=== PATIENT | male | born 1940 | race Caucasian/White ===

== ENCOUNTER 2018-06-24 18:54 | Emergency (ER) | payer MEDICARE, OTHER ==
[2018-06-24] MEDS ORDERED: PROVENTIL 2.5 MG/3 ML NEB IH ONE ×2 (19:27→19:28)
--- NOTE | 2018-06-24 19:29 | ERPHSYRPT ---
- History of Present Illness Time Seen by Provider: 06/24/18 19:15 Source: patient, family Patient Subjective Stated Complaint: pt states he has been coughing for last feew days and has not been able to get over bronchitis Triage Nursing Assessment: pt alert and oriented, asnwers qeustions approp. pt ambulatory with steady gait noted. skin warm and dry. respirations nonlabored with lung sounds dimisnished. exp wheezes noted bilat. occasional cough noted. Physician History: 78 y/o white male with copd and recurrent pneumonias presents with coughing for 2 days. pt states he has tessalon perles but does not use them because they make him feel odd. he has been on 3 rounds of z pack and steroids since april. pt has h/o asbestos exposure in the past but no dx of mesothelioma. pt denies cp and denies soa. pt speaks multiple full sentences without any distress Timing/Duration: day(s) (2) Cough Quality/Degree: mild, dry cough Possible Cause: occasional episodes Associated Symptoms: cough, wheezing, No fever, No chest pain/soreness, No shortness of breath, No sore throat International travel in last 2 weeks: No Allergies/Adverse Reactions: No Known Drug Allergies Allergy (Verified 06/24/18 19:17) Home Medications: Benzonatate [Tessalon Perle] 100 mg PO TIDPRN 06/24/18 [History] Bisoprolol/Hydrochlorothiazide [Bisoprolol-Hctz 5-6.25 mg Tab] 1 each PO DAILY 06/24/18 [History] Tiotropium [place] [Spiriva] 18 mcg IH DAILY 06/24/18 [History] Hx Tetanus, Diphtheria Vaccination/Date Given: Yes Hx Influenza Vaccination/Date Given: Yes Hx Pneumococcal Vaccination/Date Given: Yes Immunizations Up to Date: Yes - Review of Systems Constitutional: No Symptoms, No Fever Eyes: No Symptoms Ears, Nose, & Throat: No Symptoms Respiratory: Cough, Wheezing, No Dyspnea, No Stridor Cardiac: No Symptoms, No Chest Pain, No Palpitations, No Syncope Abdominal/Gastrointestinal: No Symptoms, No Abdominal Pain, No Nausea, No Vomiting, No Diarrhea Genitourinary Symptoms: No Symptoms, No Dysuria, No Frequency, No Hematuria Musculoskeletal: No Symptoms, No Back Pain, No Neck Pain Skin: No Symptoms Neurological: No Symptoms Psychological: No Symptoms Endocrine: No Symptoms Hematologic/Lymphatic: No Symptoms Immunological/Allergic: No Symptoms All Other Systems: Reviewed and Negative - Past Medical History Pertinent Past Medical History: Yes Neurological History: No Pertinent History ENT History: No Pertinent History Cardiac History: Hypertension Respiratory History: COPD Endocrine Medical History: No Pertinent History Musculoskeletal History: No Pertinent History GI Medical History: No Pertinent History History: No Pertinent History Psycho-Social History: No Pertinent History Male Reproductive Disorders: No Pertinent History - Past Surgical History Past Surgical History: Yes Neuro Surgical History: No Pertinent History Cardiac: No Pertinent History Respiratory: No Pertinent History Gastrointestinal: No Pertinent History Genitourinary: No Pertinent History Musculoskeletal: No Pertinent History Male Surgical History: No Pertinent History 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" - Social History Smoking Status: Former smoker Exposure to second hand smoke: No Drug Use: none Patient Lives Alone: No - Nursing Vital Signs Nursing Vital Signs: Initial Vital Signs Temperature 97.5 F 06/24/18 19:04 Pulse Rate 68 06/24/18 19:04 Respiratory Rate 18 06/24/18 19:04 Blood Pressure 214/85 06/24/18 19:04 O2 Sat by Pulse Oximetry 96 06/24/18 19:04 Pain Scale Pain Intensity 0 - Physical Exam General Appearance: no apparent distress, alert, anxiety Eye Exam: PERRL/EOMI, eyes nml inspection Ears, Nose, Throat Exam: normal ENT inspection, moist mucous membranes Neck Exam: normal inspection, non-tender, supple, full range of motion Respiratory Exam: airway intact, diminished breath sounds, wheezing, No chest tenderness, No respiratory distress, No accessory muscle use Cardiovascular Exam: regular rate/rhythm, normal heart sounds, normal peripheral pulses Gastrointestinal/Abdomen Exam: soft, normal bowel sounds, No tenderness, No guarding, No rebound Back Exam: normal inspection, normal range of motion, No CVA tenderness, No vertebral tenderness Extremity Exam: normal inspection, normal range of motion, pelvis stable Neurologic Exam: alert, oriented x 3, cooperative, glove turner and former II-XII nml as tested Skin Exam: normal color, warm, dry Lymphatic Exam: No adenopathy SpO2 Interpretation: normal SpO2: 96 Oxygen Delivery: Room Air - Course Nursing assessment & vital signs reviewed: Yes EKG Interpreted by Me: RATE (65), Sinus Rhythm, Left Cherry Log Deviation, Left Bundle Branch Block, Right Bundle Branch Block, Other (no comparison ekg) Ordered Tests: Active Orders 24 hr Category Date Time Status Exerciser STAT Care 06/24/18 19:33 Active EKG-ER Only STAT Care 06/24/18 19:32 Active IV Insertion STAT Care 06/24/18 19:32 Active Pulse Oximetry (ED) STAT Care 06/24/18 19:32 Active CHEST 1 VIEW (PORTABLE) Stat Exams 06/24/18 19:33 Taken CBC W DIFF Stat Lab 06/24/18 19:15 Completed CMP Stat Lab 06/24/18 19:15 Completed NT PRO BNP Stat Lab 06/24/18 19:15 Completed TROPONIN Q3H Lab 06/24/18 19:15 Completed TROPONIN Q3H Lab 06/24/18 22:45 Ordered TROPONIN Q3H Lab 06/25/18 01:45 Ordered TROPONIN Q3H Lab 06/25/18 04:45 Ordered TROPONIN Q3H Lab 06/25/18 07:45 Ordered Respiratory Therapy Assessment DAILY RT 06/24/18 19:32 Completed Medication Summary Discontinued Medications Generic Name Dose Route Start Last Admin Trade Name Freq PRN Reason Stop Dose Admin Hydrocodone Bitart/Acetaminophen 10 ml 06/24/18 21:08 06/24/18 21:11 Hydrocodone-Acetamin 2.5-108/5 Ml Solution PO 06/24/18 21:09 10 ml STAT STA Administration Hydrocodone Bitart/Acetaminophen Confirm 06/24/18 21:10 Hydrocodone-Acetamin 2.5-108/5 Ml Solution Administered 06/24/18 21:11 Dose 10 ml .ROUTE .STK-MED ONE Albuterol Sulfate 2.5 mg 06/24/18 19:27 06/24/18 19:29 Proventil 2.5 Mg/3 Ml Neb IH 06/24/18 19:28 2.5 mg STAT ONE Administration Albuterol Sulfate Confirm 06/24/18 19:28 Proventil 2.5 Mg/3 Ml Neb Administered 06/24/18 19:29 Dose 2.5 mg IH .STK-MED ONE Methylprednisolone Sodium Succinate 125 mg 06/24/18 19:32 06/24/18 19:53 Solu-Medrol 125 Mg IV 06/24/18 19:33 125 mg STAT ONE Administration Methylprednisolone Sodium Succinate Confirm 06/24/18 19:52 Solu-Medrol 125 Mg Administered 06/24/18 19:53 Dose 125 mg .ROUTE .STK-MED ONE Lab/Rad Data: Laboratory Result Diagrams 06/24/18 19:15 06/24/18 19:15 Laboratory Results 06/24/18 06/24/18 06/24/18 Range/Units 19:15 19:15 19:15 WBC 6.6 (4.0-10.5) K/mm3 RBC 4.54 (4.1-5.6) M/mm3 Hgb 12.7 (12.5-18.0) gm/dl Hct 39.3 L (42-50) % MCV 86.6 (78-100) fl MCH 28.0 (26-32) pg MCHC 32.3 (32-36) g/dl RDW 14.5 H (11.5-14.0) % Plt Count 205 (150-450) K/mm3 MPV 9.0 (6-9.5) fl Gran % 48.5 (36.0-66.0) % Eos # (Auto) 0.38 (0-0.5) Absolute Lymphs (auto) 2.20 (1.0-4.6) Absolute Monos (auto) 0.76 (0.0-1.3) Lymphocytes % 33.5 (24.0-44.0) % Monocytes % 11.6 (0.0-12.0) % Eosinophils % 5.8 H (0.00-5.0) % Basophils % 0.6 (0.0-0.4) % Absolute Granulocytes 3.18 (1.4-6.9) Basophils # 0.04 (0-0.4) Sodium 133 L (137-145) mmol/L Potassium 5.1 (3.5-5.1) mmol/L Chloride 101 (98-107) mmol/L Carbon Dioxide 24 (22-30) mmol/L Anion Gap 13.8 (5-15) MEQ/L BUN 11 (9-20) mg/dL Creatinine 0.80 (0.66-1.25) mg/dL Estimated GFR > 60.0 ML/MIN Glucose 85 (74-106) mg/dL Calcium 9.1 (8.4-10.2) mg/dL Total Bilirubin 1.30 (0.2-1.3) mg/dL AST 44 (17-59) U/L ALT 27 (0-50) U/L Alkaline Phosphatase 57 (38-126) U/L Troponin I < 0.012 (0.000-0.034) ng/mL NT-Pro-B Natriuret Pep 102 (0-1800) pg/mL Serum Total Protein 7.0 (6.3-8.2) g/dL Albumin 4.0 (3.5-5.0) g/dL - Progress Progress: improved, re-examined Air Movement: good Progress Note: 06/24/18 20:47 cxr-bilat calcified pleural plaques. c/w asbestos exposure. no infiltrate 06/24/18 21:08 pt feeling better than when he came into ED Blood Culture(s) Obtained: No Antibiotics given: No Counseled pt/family regarding: lab results, diagnosis, need for follow-up - Departure Time of Disposition: 21:15 Departure Disposition: Home Clinical Impression: COPD exacerbation Condition: Stable Critical Care Time: No Referrals: PRIYA JEONG [Primary Care Provider] - Instructions: Chronic Obstructive Pulmonary Disease Additional Instructions: drink plenty of fluids. follow up with agile project manager for further management Prescriptions: Hydrocodone Bit/Acetaminophen [Hydrocodone-Acetaminophen Soln] 10 ml PO Q6H # 120 ml Prednisone 10 mg [Deltasone 10 mg] 10 mg PO TID #12 tablet
[2018-06-24] MEDS ORDERED: solu-MEDROL 125 MG IV ONE (19:32)
[2018-06-24] MEDS ORDERED: solu-MEDROL 125 MG ONE (19:52)
[2018-06-24 20:36] LABS: BASOPHIL % 0.6 % (0.0-0.4); Basophil (Absolute #) 0.04 (0-0.4); Eosinophil % 5.8 % (0.00-5.0); Eosinophil (Absolute #) 0.38 (0-0.5); Granulocyte Absolute (ANC) 3.18 (1.4-6.9); Granulocytes % 48.5 % (36.0-66.0); Hematocrit 39.3 % (42-50); Hemoglobin 12.7 gm/dl (12.5-18.0); Lymphocytes % 33.5 % (24.0-44.0); Mean Cell Volume 86.6 fl (78-100); Mean Corpuscular Hgb Concent. 32.3 g/dl (32-36); Monocyte (Absolute #) 0.76 (0.0-1.3); Monocytes % 11.6 % (0.0-12.0); Platelet Count 205 K/mm3 (150-450); Red Blood Count 4.54 M/mm3 (4.1-5.6); Red Cell Distribution Width 14.5 % (11.5-14.0); White Blood Count 6.6 K/mm3 (4.0-10.5)
[2018-06-24 20:49] VITALS: O2SAT 96
[2018-06-24 20:58] VITALS: BP 182/80; PULSE 63
[2018-06-24 21:04] LABS: ALKALINE PHOSPHATASE 57 U/L (38-126); ANION GAP 13.8 MEQ/L (5-15); BLOOD UREA NITROGEN 11 mg/dL (9-20); CHLORIDE 101 mmol/L (98-107); Calcium 9.1 mg/dL (8.4-10.2); Carbon Dioxide 24 mmol/L (22-30); Glucose 85 mg/dL (74-106); NT PRO BNP 102 pg/mL (0-1800); Potassium 5.1 mmol/L (3.5-5.1); SGOT/AST 44 U/L (17-59); SGPT/ALT 27 U/L (0-50); SODIUM 133 mmol/L (137-145)
[2018-06-24] MEDS ORDERED: HYDROCODONE-ACETAMIN 2.5-108/5 ML SOLUTION PO STA (21:08)
[2018-06-24] MEDS ORDERED: HYDROCODONE-ACETAMIN 2.5-108/5 ML SOLUTION ONE (21:10)
--- NOTE | 2018-06-25 11:24 | XRAY ---
Indication: Cough. Comparison: None Portable chest demonstrates scattered bilateral calcified pleural plaquing and right base discoid atelectasis/scarring. No focal infiltrate, consolidation, or large effusion. Heart is not enlarged. Descending aorta tortuous. Bony thorax intact with mild degenerative changes. Impression: Nonacute chest with chronic features. Comment: Preliminary interpretation was made by [facility]. No discrepancy.
== END 2018-06-24 21:31 | disposition home or self-care (01) ==
LOC: ED 18:54
DX: J44.1 Chronic obstructive pulmonary disease with (acute) exacerbation (principal); Z79.899 Other long term (current) drug therapy
CPT/HCPCS: 36000; 36415; 71045; 80053; 83880; 84484; 85025; 93005; 93041; 94640; 96374; 99284; J2930; J7609; A9270-GY

== ENCOUNTER 2018-10-11 09:11 | Inpatient (IN) | payer MEDICARE, OTHER ==
[2018-10-11] MEDS: DUONEB 0.5-3 MG/3 ml Neb IH SCH ×3 (12:00→20:12)
[2018-10-11] MEDS ORDERED: PROVENTIL 2.5 MG/3 ML NEB IH ONE (12:04)
[2018-10-11] MEDS ORDERED: TYLENOL 325 MG PO PRN (12:55)
[2018-10-11 13:05] LABS: BASOPHIL % 0.2 % (0.0-0.4); Basophil (Absolute #) 0.02 (0-0.4); Granulocyte Absolute (ANC) 7.44 (1.4-6.9); Granulocytes % 75.8 % (36.0-66.0); Hematocrit 39.1 % (42-50); Hemoglobin 12.9 gm/dl (12.5-18.0); Lymphocyte (Absolute #) 1.01 (1.0-4.6); Lymphocytes % 10.3 % (24.0-44.0); Mean Cell Volume 84.6 fl (78-100); Mean Corpuscular Hemoglobin 27.9 pg (26-32); Mean Platelet Volume 9.1 fl (6-9.5); Monocyte (Absolute #) 1.15 (0.0-1.3); Monocytes % 11.7 % (0.0-12.0); Platelet Count 123 K/mm3 (150-450); Red Blood Count 4.62 M/mm3 (4.1-5.6); Red Cell Distribution Width 15.7 % (11.5-14.0); White Blood Count 9.8 K/mm3 (4.0-10.5)
[2018-10-11 13:19] LABS: ALBUMIN 3.7 g/dL (3.5-5.0); ALKALINE PHOSPHATASE 58 U/L (38-126); ANION GAP 15.5 MEQ/L (5-15); BLOOD UREA NITROGEN 14 mg/dL (9-20); CHLORIDE 93 mmol/L (98-107); Calcium 9.2 mg/dL (8.4-10.2); Carbon Dioxide 22 mmol/L (22-30); Glucose 103 mg/dL (74-106); NT PRO BNP 150 pg/mL (0-1800); Potassium 4.4 mmol/L (3.5-5.1); SGOT/AST 35 U/L (17-59); SGPT/ALT 38 U/L (0-50); SODIUM 126 mmol/L (137-145)
[2018-10-11] MEDS ORDERED: Zithromax 500 MG/ 250 ML NaCl Premix 500 MG/250 ML IVPB IV SCH (14:00)
--- NOTE | 2018-10-11 14:06 | XRAY ---
Indication: Short of breath. Comparison: June 24, 2018. PA/lateral chest remains hyperinflated again with bilateral scattered calcified pleural plaquing. No focal infiltrate, consolidation, or large effusion. Heart and mediastinal structures within normal limits again with tortuous descending aorta. Bony thorax intact again with mild degenerative changes. Impression: Stable nonacute hyperinflated chest with chronic features.
[2018-10-11] MEDS: Sodium Chloride 0.9% 1000 ML 1,000 ML IV SCH (14:11)
[2018-10-11] MEDS: ROCEPHIN 2 Gm-D5w 50ML BAG** 2 G/50 ML IVPB IV SCH (14:12)
[2018-10-11] MEDS ORDERED: Ventolin Hfa MDI IH PRN (14:58)
[2018-10-11] MEDS ORDERED: PROVENTIL 2.5 MG/3 ML NEB IH SCH (15:00)
[2018-10-11] MEDS ORDERED: PROVENTIL COMMON CANISTER IH PRN (15:01)
[2018-10-11] MEDS ORDERED: MEDICATION INTERVENTION PO SCH (15:15)
[2018-10-11] MEDS: Tessalon Perles 100 MG PO SCH ×2 (15:53→22:20)
[2018-10-11] MEDS ORDERED: Pepto-Bismol PO SCH (18:30)
[2018-10-11] MEDS ORDERED: Advair Hfa 115/21 Common canister IH SCH (19:00)
[2018-10-11] MEDS: Advair Hfa 230/21 Mcg COMMON CANISTER IH SCH (20:04)
[2018-10-12] MEDS: DUONEB 0.5-3 MG/3 ml Neb IH SCH ×4 (02:10→17:26)
[2018-10-12] MEDS: Advair Hfa 230/21 Mcg COMMON CANISTER IH SCH ×2 (06:42→17:26)
[2018-10-12] MEDS: Pepto-Bismol PO PRN ×3 (08:17→17:32)
--- NOTE | 2018-10-12 09:14 | PCM.NOTE ---
Date and Time: 10/12/18910 Subjective Assessment: still short of breath - Review of Systems Constitutional: No Fever, No Chills Eyes: No Symptoms Ears, Nose, & Throat: No Symptoms Respiratory: Cough, Orthopnea, Short Of Breath, Wheezing Cardiac: No Chest Pain, No Edema, No Syncope Abdominal/Gastrointestinal: No Abdominal Pain, No Nausea, No Vomiting, No Diarrhea Genitourinary Symptoms: No Dysuria Musculoskeletal: No Back Pain, No Neck Pain Skin: No Rash Neurological: No Dizziness, No Focal Weakness, No Sensory Changes Psychological: No Symptoms Endocrine: No Symptoms Hematologic/Lymphatic: No Symptoms Immunological/Allergic: No Symptoms Objective Exam General Appearance: no apparent distress, alert Neurologic Exam: alert, oriented x 3, cooperative, normal mood/affect, nml cerebellar function, sensation nml, No motor deficits Skin Exam: normal color, warm, dry Eye Exam: PERRL, EOMI, eyes nml inspection Ears, Nose, Throat Exam: normal ENT inspection, pharynx normal, moist mucous membranes Neck Exam: normal inspection, non-tender, supple, full range of motion Respiratory Exam: diminished breath sounds, prolonged expirations, crackles/ rales, rhonchi, wheezing, No respiratory distress Cardiovascular Exam: regular rate/rhythm, normal heart sounds Gastrointestinal/Abdomen Exam: soft, No tenderness, No mass Extremity Exam: normal inspection, normal range of motion Back Exam: normal inspection, normal range of motion, No CVA tenderness, No vertebral tenderness Male Genitalia Exam: deferred Rectal Exam: deferred OBJECTIVE DATA Vital Signs: Vital Signs - 24 hr Temp Pulse Resp BP Pulse Ox 10/12/18 07:18 98 F 80 20 178/76 94 L 10/12/18 06:45 84 22 93 L 10/12/18 04:00 18 10/12/18 03:48 97.9 F 90 18 127/59 93 L 10/12/18 03:28 79 18 89 L 10/12/18 00:00 20 10/11/18 23:58 98.9 F 76 19 141/65 96 10/11/18 20:00 97.7 F 74 18 158/69 94 L 10/11/18 19:59 68 22 94 L 10/11/18 16:00 97.8 F 65 20 153/67 94 L 10/11/18 14:38 94 L 10/11/18 12:27 64 22 92 L 10/11/18 12:05 97.7 F 66 20 160/75 93 L Oxygen-Last 24 hours O2 Percentage 2 Liters = 28% O2 Percentage 2 Liters = 28% O2 Percentage 2 Liters = 28% O2 Percentage 2 Liters = 28% Pain Assessment - Last Documented Pain Intensity 0 Pain Scale Used 0-10 Pain Scale Intake and Output: Intake & Output 10/09/18 10/10/18 10/11/18 10/12/18 11:59 11:59 11:59 11:59 Intake Total 1992 Balance 1992 Weight 102.2 kg Lab Results: Lab Results-Last 24 Hours 10/11/18 10/11/18 Range/Units 12:15 12:15 WBC 9.8 (4.0-10.5) K/mm3 RBC 4.62 (4.1-5.6) M/mm3 Hgb 12.9 (12.5-18.0) gm/dl Hct 39.1 L (42-50) % MCV 84.6 (78-100) fl MCH 27.9 (26-32) pg MCHC 33.0 (32-36) g/dl RDW 15.7 H (11.5-14.0) % Plt Count 123 L (150-450) K/mm3 MPV 9.1 (6-9.5) fl Gran % 75.8 H (36.0-66.0) % Eos # (Auto) 0.20 (0-0.5) Absolute Lymphs (auto) 1.01 (1.0-4.6) Absolute Monos (auto) 1.15 (0.0-1.3) Lymphocytes % 10.3 L (24.0-44.0) % Monocytes % 11.7 (0.0-12.0) % Eosinophils % 2.0 (0.00-5.0) % Basophils % 0.2 (0.0-0.4) % Absolute Granulocytes 7.44 H (1.4-6.9) Basophils # 0.02 (0-0.4) Sodium 126 L (137-145) mmol/L Potassium 4.4 (3.5-5.1) mmol/L Chloride 93 L (98-107) mmol/L Carbon Dioxide 22 (22-30) mmol/L Anion Gap 15.5 H (5-15) MEQ/L BUN 14 (9-20) mg/dL Creatinine 0.80 (0.66-1.25) mg/dL Estimated GFR > 60.0 ML/MIN Glucose 103 (74-106) mg/dL Calcium 9.2 (8.4-10.2) mg/dL Total Bilirubin 1.80 H (0.2-1.3) mg/dL AST 35 (17-59) U/L ALT 38 (0-50) U/L Alkaline Phosphatase 58 (38-126) U/L NT-Pro-B Natriuret Pep 150 (0-1800) pg/mL Serum Total Protein 7.0 (6.3-8.2) g/dL Albumin 3.7 (3.5-5.0) g/dL Radiology Exams: Radiology Procedures Category Date Time Status CHEST 2 VIEWS (PA AND LAT) Stat Exams 10/11/18 13:57 Completed Assessment/Plan (1) COPD exacerbation Current Visit: Yes Status: Acute Assessment & Plan: Last Vital Signs Temp 98 F 10/12/18 07:18 Pulse 80 10/12/18 07:18 Resp 20 10/12/18 07:18 BP 178/76 10/12/18 07:18 Pulse Ox 94 L 10/12/18 07:18 Allergies No Known Drug Allergies Allergy (Verified 06/24/18 19:17) Active Medications Acetaminophen (Tylenol 325 Mg) 325 mg PO Q4H PRN PRN PRN Reason: PAIN, FEVER, HEADACHE Stop: 11/10/18 12:54 Albuterol Sulfate (Proventil Common Canister) 2 puff IH QID PRN PRN PRN Reason: SHORTNESS OF BREATH/WHEEZING Stop: 11/10/18 15:00 Albuterol/Ipratropium (Duoneb 0.5-3 Mg/3 Ml Neb) 3 ml IH Q6HRT [facility] Stop: 11/10/18 12:59 Last Admin: 10/12/18 06:42 Dose: 3 ml Benzonatate (Tessalon Perles 100 Mg) 100 mg PO TID [facility] Stop: 11/10/18 14:59 Last Admin: 10/11/18 22:20 Dose: 100 mg Bismuth Subsalicylate (Pepto-Bismol) 524 mg PO Q1H PRN PRN Stop: 11/10/18 18:29 Last Admin: 10/12/18 08:17 Dose: 524 mg Ceftriaxone Sodium/Dextrose (Rocephin 2 Gm-D5w 50ml Bag) 2 g in 50 mls @ 100 mls/hr IV Q24H10 [facility] Stop: 11/10/18 13:14 Last Admin: 10/11/18 14:12 Dose: 100 mls/hr Sodium Chloride (Sodium Chloride 0.9% 1000 Ml) 1,000 mls @ 50 mls/hr IV .Q20H [facility] Stop: 11/10/18 12:59 Last Admin: 10/11/18 14:11 Dose: 50 mls/hr Azithromycin (Zithromax 500 Mg/ 250 Ml Nacl Premix) 500 mg in 250 mls @ 250 mls /hr IV Q24H10 [facility] Stop: 11/11/18 09:59 Miscellaneous Information (Medication Intervention) 1 each PO .RN TO CHECK ON [facility] Stop: 11/10/18 15:14 Multivitamins Therapeutic (Theragran Multivitamin) 1 tab PO DAILY [facility] Stop: 11/11/18 09:59 Fluticasone/Salmeterol (Advair Hfa 230/21 Mcg Common Canister*) 2 puff IH BIDRT [facility] Stop: 11/10/18 18:59 Last Admin: 10/12/18 06:42 Dose: 2 puff Intake & Output 10/11/18 10/12/18 11:59 11:59 Intake Total 1992 Balance 1992 Weight 102.2 kg Orders 10/11/18 12:27 Oxygen NASAL CANNULA 2 lpm Respiratory Therapy Assessment DAILY 10/11/18 12:28 Peak Expiratory Flow Rate ONCE Pulse Oximetry .spot check 10/11/18 12:55 Place in Observation ROUTINE Acetaminophen 325 mg [Tylenol 325 mg] 325 mg PO Q4H PRN PRN 10/11/18 12:57 Up Ad Amrita TOLERATED 10/11/18 13:00 Albuterol/Ipratropium 3ml Neb* [DUONEB 0.5-3 MG/3 ml Neb] 3 ml IH Q6HRT NaCl 0.9% 1000 ml [Sodium Chloride 0.9% 1000 ML] 1,000 ml IV 50 mls/hr 10/11/18 13:15 Ceftriaxone 2 GM/50 ML PREMIX* [ROCEPHIN 2 Gm-D5w 50ML BAG] 2 g in 50 ml IV Q24H10 10/11/18 15:00 Benzonatate 100 mg [Tessalon Perles 100 MG] 100 mg PO TID 10/11/18 15:01 Albuterol Common Canister [Proventil Common Canister] 2 puff IH QID PRN PRN 10/11/18 15:15 Medication Intervention 1 each PO .RN TO CHECK ON 10/11/18 19:00 Fluticasone/Salmeterol 230/21 [Advair Hfa 230/21 Mcg COMMON CANISTER*] 2 puff IH BIDRT 10/11/18 21:00 BiPap/CPAP ROUTINE 10/11/18 Lunch Regular Diet 10/12/18 06:45 Bismuth Subsalicylate [Pepto-Bismol] 524 mg PO Q1H PRN PRN 10/12/18 08:50 Ambulate Patient TID 10/12/18 09:30 Methylprednis Sod Succ 125 mg* [solu-MEDROL 125 MG] 60 mg IV Q12H 10/12/18 10:00 Azithromycin 500 mg/250 ml [Zithromax 500 MG/ 250 ML NaCl Premix] 500 mg in 250 ml IV Q24H10 Multivitamins,Therapeutic Tab* [Theragran Multivitamin] 1 tab PO DAILY Lab Tests 10/11/18 10/11/18 12:15 12:15 WBC 9.8 RBC 4.62 Hgb 12.9 Hct 39.1 L MCV 84.6 MCH 27.9 MCHC 33.0 RDW 15.7 H Plt Count 123 L MPV 9.1 Gran % 75.8 H Eos # (Auto) 0.20 Absolute Lymphs (auto) 1.01 Absolute Monos (auto) 1.15 Lymphocytes % 10.3 L Monocytes % 11.7 Eosinophils % 2.0 Basophils % 0.2 Absolute Granulocytes 7.44 H Basophils # 0.02 Sodium 126 L Potassium 4.4 Chloride 93 L Carbon Dioxide 22 Anion Gap 15.5 H BUN 14 Creatinine 0.80 Estimated GFR > 60.0 Glucose 103 Calcium 9.2 Total Bilirubin 1.80 H AST 35 ALT 38 Alkaline Phosphatase 58 NT-Pro-B Natriuret Pep 150 Serum Total Protein 7.0 Albumin 3.7 Code(s): J44.1 - CHRONIC OBSTRUCTIVE PULMONARY DISEASE W (ACUTE) EXACERBATION (2) HTN (hypertension) Current Visit: Yes Status: Acute Code(s): I10 - ESSENTIAL (PRIMARY) HYPERTENSION
[2018-10-12] MEDS: solu-MEDROL 125 MG IV SCH ×2 (09:51→22:29)
[2018-10-12] MEDS: ROCEPHIN 2 Gm-D5w 50ML BAG** 2 G/50 ML IVPB IV SCH (09:52)
[2018-10-12] MEDS: THERAGRAN MULTIVITAMIN PO SCH (09:53)
[2018-10-12] MEDS: Tessalon Perles 100 MG PO SCH ×3 (09:53→22:28)
[2018-10-12] MEDS: Zithromax 500 MG/ 250 ML NaCl Premix 500 MG/250 ML IVPB IV SCH (09:55)
[2018-10-12] MEDS ORDERED: HYDROCHLOROTHIAZIDE PO SCH (10:00)
[2018-10-12] MEDS ORDERED: [UNRECOGNIZED DRUG - OTHER] PO SCH (10:00)
[2018-10-12] MEDS ORDERED: [UNRECOGNIZED DRUG - OTHER] PO SCH (10:00)
[2018-10-12] MEDS ORDERED: LYCOPENE PO SCH (10:00)
[2018-10-12] MEDS ORDERED: BISOPROLOL PO SCH (10:00)
[2018-10-12] MEDS ORDERED: MULTIVIT MINERALS PO SCH (10:00)
[2018-10-12] MEDS: Sodium Chloride 0.9% 1000 ML 1,000 ML IV SCH (13:40)
[2018-10-13] MEDS: DUONEB 0.5-3 MG/3 ml Neb IH SCH ×4 (01:35→20:55)
[2018-10-13] MEDS: Advair Hfa 230/21 Mcg COMMON CANISTER IH SCH ×2 (08:48→20:56)
[2018-10-13] MEDS: Tessalon Perles 100 MG PO SCH ×3 (09:06→21:49)
[2018-10-13] MEDS: solu-MEDROL 125 MG IV SCH ×2 (09:06→21:50)
[2018-10-13] MEDS: THERAGRAN MULTIVITAMIN PO SCH (09:06)
[2018-10-13] MEDS: ROCEPHIN 2 Gm-D5w 50ML BAG** 2 G/50 ML IVPB IV SCH (09:07)
[2018-10-13] MEDS: Zithromax 500 MG/ 250 ML NaCl Premix 500 MG/250 ML IVPB IV SCH (10:23)
[2018-10-13] MEDS: PATIENT OWN MEDICATION PO SCH (10:23)
--- NOTE | 2018-10-13 12:53 | PCM.NOTE ---
Date and Time: 10/13/18 1251 Subjective Assessment: doing ok - Review of Systems Constitutional: No Fever, No Chills Eyes: No Symptoms Ears, Nose, & Throat: No Symptoms Respiratory: No Cough, No Short Of Breath Cardiac: No Chest Pain, No Edema, No Syncope Abdominal/Gastrointestinal: No Abdominal Pain, No Nausea, No Vomiting, No Diarrhea Genitourinary Symptoms: No Dysuria Musculoskeletal: No Back Pain, No Neck Pain Skin: No Rash Neurological: No Dizziness, No Focal Weakness, No Sensory Changes Psychological: No Symptoms Endocrine: No Symptoms Hematologic/Lymphatic: No Symptoms Immunological/Allergic: No Symptoms Objective Exam General Appearance: no apparent distress, alert Neurologic Exam: alert, oriented x 3, cooperative, normal mood/affect, nml cerebellar function, sensation nml, No motor deficits Skin Exam: normal color, warm, dry Eye Exam: PERRL, EOMI, eyes nml inspection Ears, Nose, Throat Exam: normal ENT inspection, pharynx normal, moist mucous membranes Neck Exam: normal inspection, non-tender, supple, full range of motion Respiratory Exam: normal breath sounds, lungs clear, No respiratory distress Cardiovascular Exam: regular rate/rhythm, normal heart sounds Gastrointestinal/Abdomen Exam: soft, No tenderness, No mass Extremity Exam: normal inspection, normal range of motion Back Exam: normal inspection, normal range of motion, No CVA tenderness, No vertebral tenderness Male Genitalia Exam: deferred Rectal Exam: deferred OBJECTIVE DATA Vital Signs: Vital Signs - 24 hr Temp Pulse Resp BP Pulse Ox 10/13/18 08:50 83 18 97 10/13/18 08:00 97.8 F 83 20 174/84 95 10/13/18 03:59 97.4 F 89 18 159/71 93 L 10/13/18 01:35 115 H 26 H 85 L 10/13/18 00:00 20 10/12/18 23:59 98.6 F 99 H 20 150/71 95 10/12/18 20:00 18 10/12/18 19:49 97.4 F 110 H 18 153/68 94 L 10/12/18 17:29 105 H 20 92 L 10/12/18 16:16 97.7 F 82 20 167/74 95 10/12/18 16:00 20 10/12/18 13:14 81 18 95 Oxygen-Last 24 hours O2 Percentage 4 Liters = 36% O2 Percentage 3 Liters = 32% O2 Percentage 3 Liters = 32% O2 Percentage 2 Liters = 28% Pain Assessment - Last Documented Pain Intensity 2 Pain Scale Used 0-10 Pain Scale Intake and Output: Intake & Output 10/11/18 10/12/18 10/13/18 10/14/18 11:59 11:59 11:59 11:59 Intake Total 1992 3414 Balance 1992 3414 Weight 102.2 kg Radiology Exams: Radiology Procedures Category Date Time Status CHEST 2 VIEWS (PA AND LAT) Stat Exams 10/11/18 13:57 Completed Assessment/Plan (1) COPD exacerbation Current Visit: Yes Status: Acute Code(s): J44.1 - CHRONIC OBSTRUCTIVE PULMONARY DISEASE W (ACUTE) EXACERBATION (2) HTN (hypertension) Current Visit: Yes Status: Acute Code(s): I10 - ESSENTIAL (PRIMARY) HYPERTENSION
[2018-10-13] MEDS: Pepto-Bismol PO PRN ×2 (13:54→23:15)
[2018-10-13] MEDS: PROTONIX 40 MG IV IV SCH (14:03)
[2018-10-13] MEDS: Sodium Chloride 0.9% 1000 ML 1,000 ML IV SCH (16:38)
[2018-10-14] MEDS: DUONEB 0.5-3 MG/3 ml Neb IH SCH ×4 (00:05→18:45)
[2018-10-14] MEDS: Advair Hfa 230/21 Mcg COMMON CANISTER IH SCH ×2 (07:34→18:45)
[2018-10-14] MEDS: Tessalon Perles 100 MG PO SCH ×3 (11:09→21:18)
[2018-10-14] MEDS: solu-MEDROL 125 MG IV SCH ×2 (11:09→21:18)
[2018-10-14] MEDS: ROCEPHIN 2 Gm-D5w 50ML BAG** 2 G/50 ML IVPB IV SCH (11:09)
[2018-10-14] MEDS: PROTONIX 40 MG IV IV SCH (11:09)
[2018-10-14] MEDS: THERAGRAN MULTIVITAMIN PO SCH (11:10)
[2018-10-14] MEDS: PATIENT OWN MEDICATION PO SCH (11:10)
[2018-10-14] MEDS: Zithromax 500 MG/ 250 ML NaCl Premix 500 MG/250 ML IVPB IV SCH (11:12)
[2018-10-14] MEDS ORDERED: Zestril 5 MG PO STA (11:40)
[2018-10-14] MEDS: Sodium Chloride 0.9% 1000 ML 1,000 ML IV SCH (12:33)
[2018-10-14 12:46] LABS: Hematocrit 34.8 % (42-50); Hemoglobin 11.1 gm/dl (12.5-18.0); Mean Corpuscular Hgb Concent. 31.9 g/dl (32-36); Mean Platelet Volume 8.9 fl (6-9.5); Platelet Count 155 K/mm3 (150-450); Red Cell Distribution Width 15.2 % (11.5-14.0); White Blood Count 17.9 K/mm3 (4.0-10.5)
[2018-10-14 12:52] LABS: ALBUMIN 3.4 g/dL (3.5-5.0); ALKALINE PHOSPHATASE 49 U/L (38-126); ANION GAP 15.9 MEQ/L (5-15); BLOOD UREA NITROGEN 15 mg/dL (9-20); CHLORIDE 101 mmol/L (98-107); Calcium 8.7 mg/dL (8.4-10.2); Carbon Dioxide 21 mmol/L (22-30); Creatinine 1 0.77 mg/dL (0.66-1.25); Glucose 128 mg/dL (74-106); SGOT/AST 38 U/L (17-59); SGPT/ALT 37 U/L (0-50); SODIUM 134 mmol/L (137-145); Total Protein 6.5 g/dL (6.3-8.2)
[2018-10-14 13:10] LABS: Mean Corpuscular Hemoglobin 27.7 pg (26-32)
--- NOTE | 2018-10-14 15:23 | PCM.NOTE ---
Date and Time: 10/14/181517 Subjective Assessment: Patient reports that he feels better but still short breath at times and he does not wear oxygen at home. He reports history of asbestos exposure. - Review of Systems Constitutional: No Symptoms Eyes: No Symptoms Ears, Nose, & Throat: No Symptoms Respiratory: Cough, Short Of Breath, Wheezing Cardiac: No Symptoms Abdominal/Gastrointestinal: No Symptoms Genitourinary Symptoms: No Symptoms Musculoskeletal: No Symptoms Skin: Other (lower extremity swelling) Objective Exam General Appearance: no apparent distress, alert, other (talkative, pleasant) Neurologic Exam: alert, cooperative, normal mood/affect Skin Exam: normal color, warm, dry, No rash Respiratory Exam: other (distant breath sounds, few wheezes, no crackles, no rhonchi) Cardiovascular Exam: regular rate/rhythm, No murmur, No friction rub, No gallop Gastrointestinal/Abdomen Exam: soft, normal bowel sounds, No tenderness, No distention, No mass Extremity Exam: other (trace edema bilat, no c/c) OBJECTIVE DATA Vital Signs: Vital Signs - 24 hr Temp Pulse Resp BP Pulse Ox 10/14/18 12:56 71 18 97 10/14/18 12:00 20 10/14/18 11:13 97.6 F 86 20 169/76 97 10/14/18 07:30 85 18 97 10/14/18 07:14 97.8 F 90 20 123/70 97 10/14/18 03:46 97.5 F 86 18 133/62 94 L 10/14/18 00:05 94 H 18 93 L 10/14/18 00:00 97.2 F 90 18 184/79 96 10/13/18 20:57 78 18 95 10/13/18 20:00 95.0 F 82 18 174/76 95 10/13/18 16:00 97.4 F 83 20 156/69 95 Oxygen-Last 24 hours O2 Percentage 2 Liters = 28% O2 Percentage 2 Liters = 28% O2 Percentage 2 Liters = 28% O2 Percentage 4 Liters = 36% Pain Assessment - Last Documented Pain Intensity 0 Pain Scale Used 0-10 Pain Scale Intake and Output: Intake & Output 10/12/18 10/13/18 10/14/18 10/15/18 06:59 06:59 06:59 06:59 Intake Total 1633 3294 2920 600 Balance 1633 3294 2920 600 Weight 102.2 kg Lab Results: Lab Results-Last 24 Hours 10/14/18 10/14/18 Range/Units 12:25 12:25 WBC 17.9 H (4.0-10.5) K/mm3 RBC 4.00 L (4.1-5.6) M/mm3 Hgb 11.1 L (12.5-18.0) gm/dl Hct 34.8 L (42-50) % MCV 87.0 (78-100) fl MCH 27.7 (26-32) pg MCHC 31.9 L (32-36) g/dl RDW 15.2 H (11.5-14.0) % Plt Count 155 (150-450) K/mm3 MPV 8.9 (6-9.5) fl Sodium 134 L (137-145) mmol/L Potassium 4.0 (3.5-5.1) mmol/L Chloride 101 (98-107) mmol/L Carbon Dioxide 21 L (22-30) mmol/L Anion Gap 15.9 H (5-15) MEQ/L BUN 15 (9-20) mg/dL Creatinine 0.77 (0.66-1.25) mg/dL Estimated GFR > 60.0 ML/MIN Glucose 128 H (74-106) mg/dL Calcium 8.7 (8.4-10.2) mg/dL Total Bilirubin 0.30 (0.2-1.3) mg/dL AST 38 (17-59) U/L ALT 37 (0-50) U/L Alkaline Phosphatase 49 (38-126) U/L Serum Total Protein 6.5 (6.3-8.2) g/dL Albumin 3.4 L (3.5-5.0) g/dL Assessment/Plan (1) COPD exacerbation Current Visit: Yes Status: Acute Assessment & Plan: Continue oxygen, breathing treatments, antibiotics, and steroids. Slowly improving. Code(s): J44.1 - CHRONIC OBSTRUCTIVE PULMONARY DISEASE W (ACUTE) EXACERBATION (2) HTN (hypertension) Current Visit: Yes Status: Acute Assessment & Plan: Continue bisoprolol/HCTZ. Add lisinopril 5 mg po daily. Code(s): I10 - ESSENTIAL (PRIMARY) HYPERTENSION (3) Hyponatremia Current Visit: Yes Status: Acute Assessment & Plan: Improved with IV fluids. Code(s): E87.1 - HYPO-OSMOLALITY AND HYPONATREMIA (4) Thrombocytopenia Current Visit: Yes Status: Acute Assessment & Plan: stable. He is not on lovenox.
[2018-10-14 16:18] LABS: BAND 1 % (0.0-2.0); Lymphocytes 3 % (24-44); Monocyte 5 % (0.0-12.0); Neutrophils 91 % (36.-66.); Total Cells Counted 100
[2018-10-14 16:19] LABS: Platelet Estimate NORMAL (NORMAL)
[2018-10-15] MEDS: DUONEB 0.5-3 MG/3 ml Neb IH SCH ×4 (01:17→20:37)
[2018-10-15] MEDS: Advair Hfa 230/21 Mcg COMMON CANISTER IH SCH ×2 (07:40→20:38)
--- NOTE | 2018-10-15 09:10 | PCM.NOTE ---
Date and Time: 10/15/18907 Subjective Assessment: doing better - Review of Systems Constitutional: No Fever, No Chills Eyes: No Symptoms Ears, Nose, & Throat: No Symptoms Respiratory: No Cough, No Short Of Breath Cardiac: No Chest Pain, No Edema, No Syncope Abdominal/Gastrointestinal: No Abdominal Pain, No Nausea, No Vomiting, No Diarrhea Genitourinary Symptoms: No Dysuria Musculoskeletal: No Back Pain, No Neck Pain Skin: No Rash Neurological: No Dizziness, No Focal Weakness, No Sensory Changes Psychological: No Symptoms Endocrine: No Symptoms Hematologic/Lymphatic: No Symptoms Immunological/Allergic: No Symptoms Objective Exam General Appearance: no apparent distress, alert Neurologic Exam: alert, oriented x 3, cooperative, normal mood/affect, nml cerebellar function, sensation nml, No motor deficits Skin Exam: normal color, warm, dry Eye Exam: PERRL, EOMI, eyes nml inspection Ears, Nose, Throat Exam: normal ENT inspection, pharynx normal, moist mucous membranes Neck Exam: normal inspection, non-tender, supple, full range of motion Respiratory Exam: diminished breath sounds, No respiratory distress Cardiovascular Exam: regular rate/rhythm, normal heart sounds Gastrointestinal/Abdomen Exam: soft, No tenderness, No mass Extremity Exam: normal inspection, normal range of motion Back Exam: normal inspection, normal range of motion, No CVA tenderness, No vertebral tenderness Male Genitalia Exam: deferred Rectal Exam: deferred OBJECTIVE DATA Vital Signs: Vital Signs - 24 hr Temp Pulse Resp BP Pulse Ox 10/15/18 08:00 97.9 F 79 18 146/65 93 L 10/15/18 07:43 93 H 18 97 10/15/18 04:00 97.2 F 89 20 165/72 95 10/15/18 01:17 82 20 93 L 10/15/18 00:00 106 H 20 145/67 92 L 10/14/18 23:49 19 10/14/18 20:00 97.9 F 87 18 153/68 95 10/14/18 18:52 74 20 94 L 10/14/18 16:58 97.8 F 64 20 151/64 97 10/14/18 12:56 71 18 97 10/14/18 12:00 20 10/14/18 11:13 97.6 F 86 20 169/76 97 Oxygen-Last 24 hours O2 Percentage 3 Liters = 32% O2 Percentage 2 Liters = 28% O2 Percentage 2 Liters = 28% O2 Percentage 2 Liters = 28% Pain Assessment - Last Documented Pain Intensity 0 Pain Scale Used 0-10 Pain Scale,FLACC Intake and Output: Intake & Output 10/12/18 10/13/18 10/14/18 10/15/18 11:59 11:59 11:59 11:59 Intake Total 1992 3414 2800 2060 Balance 1992 341 2800 2059 Weight 102.2 kg Lab Results: Lab Results-Last 24 Hours 10/14/18 10/14/18 Range/Units 12:25 12:25 WBC 17.9 H (4.0-10.5) K/mm3 RBC 4.00 L (4.1-5.6) M/mm3 Hgb 11.1 L (12.5-18.0) gm/dl Hct 34.8 L (42-50) % MCV 87.0 (78-100) fl MCH 27.7 (26-32) pg MCHC 31.9 L (32-36) g/dl RDW 15.2 H (11.5-14.0) % Plt Count 155 (150-450) K/mm3 MPV 8.9 (6-9.5) fl Segmented Neutrophils 91 H (36.-66.) % Band Neutrophils 1 (0.0-2.0) % Lymphocytes (Manual) 3 L (24-44) % Monocytes (Manual) 5 (0.0-12.0) % Platelet Estimate NORMAL (NORMAL) RBC Morphology NORMAL Sodium 134 L (137-145) mmol/L Potassium 4.0 (3.5-5.1) mmol/L Chloride 101 (98-107) mmol/L Carbon Dioxide 21 L (22-30) mmol/L Anion Gap 15.9 H (5-15) MEQ/L BUN 15 (9-20) mg/dL Creatinine 0.77 (0.66-1.25) mg/dL Estimated GFR > 60.0 ML/MIN Glucose 128 H (74-106) mg/dL Calcium 8.7 (8.4-10.2) mg/dL Total Bilirubin 0.30 (0.2-1.3) mg/dL AST 38 (17-59) U/L ALT 37 (0-50) U/L Alkaline Phosphatase 49 (38-126) U/L Serum Total Protein 6.5 (6.3-8.2) g/dL Albumin 3.4 L (3.5-5.0) g/dL Assessment/Plan (1) COPD exacerbation Current Visit: Yes Status: Acute Assessment & Plan: Last Vital Signs Temp 97.9 F 10/15/18 08:00 Pulse 79 10/15/18 08:00 Resp 18 10/15/18 08:00 BP 146/65 10/15/18 08:00 Pulse Ox 93 L 10/15/18 08:00 Allergies No Known Drug Allergies Allergy (Verified 06/24/18 19:17) Active Medications Acetaminophen (Tylenol 325 Mg) 325 mg PO Q4H PRN PRN PRN Reason: PAIN, FEVER, HEADACHE Stop: 11/10/18 12:54 Albuterol Sulfate (Proventil Common Canister) 2 puff IH QID PRN PRN PRN Reason: SHORTNESS OF BREATH/WHEEZING Stop: 11/10/18 15:00 Albuterol/Ipratropium (Duoneb 0.5-3 Mg/3 Ml Neb) 3 ml IH Q6HRT [facility] Stop: 11/10/18 12:59 Last Admin: 10/15/18 07:39 Dose: 3 ml Benzonatate (Tessalon Perles 100 Mg) 100 mg PO TID [facility] Stop: 11/10/18 14:59 Last Admin: 10/14/18 21:18 Dose: 100 mg Bismuth Subsalicylate (Pepto-Bismol) 524 mg PO Q1H PRN PRN Stop: 11/10/18 18:29 Last Admin: 10/13/18 23:15 Dose: 524 mg Enoxaparin Sodium (Enoxaparin Sodium) 40 mg SQ DAILY [facility] Stop: 11/14/18 09:59 Ceftriaxone Sodium/Dextrose (Rocephin 2 Gm-D5w 50ml Bag) 2 g in 50 mls @ 100 mls/hr IV Q24H10 [facility] Stop: 11/10/18 13:14 Last Admin: 10/14/18 11:09 Dose: 100 mls/hr Sodium Chloride (Sodium Chloride 0.9% 1000 Ml) 1,000 mls @ 30 mls/hr IV .Q24H [facility] Stop: 11/10/18 12:59 Last Admin: 10/14/18 12:33 Dose: 50 mls/hr Azithromycin (Zithromax 500 Mg/ 250 Ml Nacl Premix) 500 mg in 250 mls @ 250 mls /hr IV Q24H10 [facility] Stop: 11/11/18 09:59 Last Admin: 10/14/18 11:12 Dose: 250 mls/hr Lisinopril (Zestril 5 Mg) 5 mg PO DAILY [facility] Stop: 11/14/18 09:59 Methylprednisolone Sodium Succinate (Solu-Medrol 125 Mg) 60 mg IV Q12HT [facility] Stop: 11/11/18 09:59 Last Admin: 10/14/18 21:18 Dose: 60 mg Multivitamins Therapeutic (Theragran Multivitamin) 1 tab PO DAILY [facility] Stop: 11/11/18 09:59 Last Admin: 10/14/18 11:10 Dose: 1 tab Pantoprazole Sodium (Protonix 40 Mg Iv) 40 mg IV Q24H10 [facility] Stop: 11/12/18 13:44 Last Admin: 10/14/18 11:09 Dose: 40 mg Bisoprolol/Hctz 5-6. (25mg Tablet) 1 each PO DAILY [facility] Stop: 11/12/18 09:59 Last Admin: 10/14/18 11:10 Dose: 1 each Fluticasone/Salmeterol (Advair Hfa 230/21 Mcg Common Canister*) 2 puff IH BIDRT [facility] Stop: 11/10/18 18:59 Last Admin: 10/15/18 07:40 Dose: 2 puff Intake & Output 10/14/18 10/15/18 11:59 11:59 Intake Total 2800 2060 Balance 2800 2060 Orders 10/15/18 10:00 Enoxaparin Sodium [Enoxaparin Sodium] 40 mg SQ DAILY Lab Tests 10/14/18 10/14/18 12:25 12:25 WBC 17.9 H RBC 4.00 L Hgb 11.1 L Hct 34.8 L MCV 87.0 MCH 27.7 MCHC 31.9 L RDW 15.2 H Plt Count 155 MPV 8.9 Segmented Neutrophils 91 H Band Neutrophils 1 Lymphocytes (Manual) 3 L Monocytes (Manual) 5 Platelet Estimate NORMAL RBC Morphology NORMAL Sodium 134 L Potassium 4.0 Chloride 101 Carbon Dioxide 21 L Anion Gap 15.9 H BUN 15 Creatinine 0.77 Estimated GFR > 60.0 Glucose 128 H Calcium 8.7 Total Bilirubin 0.30 AST 38 ALT 37 Alkaline Phosphatase 49 Serum Total Protein 6.5 Albumin 3.4 L Code(s): J44.1 - CHRONIC OBSTRUCTIVE PULMONARY DISEASE W (ACUTE) EXACERBATION (2) HTN (hypertension) Current Visit: Yes Status: Chronic Qualifiers: Hypertension type: essential hypertension Qualified Code(s): I10 - Essential (primary) hypertension Code(s): I10 - ESSENTIAL (PRIMARY) HYPERTENSION
[2018-10-15] MEDS: ENOXAPARIN SODIUM SQ SCH (09:59)
[2018-10-15] MEDS: solu-MEDROL 125 MG IV SCH ×2 (10:00→21:18)
[2018-10-15] MEDS: PATIENT OWN MEDICATION PO SCH (10:00)
[2018-10-15] MEDS: ROCEPHIN 2 Gm-D5w 50ML BAG** 2 G/50 ML IVPB IV SCH (10:01)
[2018-10-15] MEDS: PROTONIX 40 MG IV IV SCH (10:01)
[2018-10-15] MEDS: Zestril 5 MG PO SCH (10:01)
[2018-10-15] MEDS: THERAGRAN MULTIVITAMIN PO SCH (10:01)
[2018-10-15] MEDS: Tessalon Perles 100 MG PO SCH ×3 (10:01→21:18)
[2018-10-15] MEDS: Sodium Chloride 0.9% 1000 ML 1,000 ML IV SCH (10:01)
[2018-10-15] MEDS: Zithromax 500 MG/ 250 ML NaCl Premix 500 MG/250 ML IVPB IV SCH (10:41)
[2018-10-16] MEDS: DUONEB 0.5-3 MG/3 ml Neb IH SCH ×3 (01:07→12:35)
[2018-10-16] MEDS: Pepto-Bismol PO PRN (04:20)
[2018-10-16] MEDS: Advair Hfa 230/21 Mcg COMMON CANISTER IH SCH (06:40)
[2018-10-16] MEDS: Sodium Chloride 0.9% 1000 ML 1,000 ML IV SCH (06:52)
[2018-10-16] MEDS: Tessalon Perles 100 MG PO SCH (10:28)
[2018-10-16] MEDS: THERAGRAN MULTIVITAMIN PO SCH (10:28)
[2018-10-16] MEDS: PROTONIX 40 MG IV IV SCH (10:28)
[2018-10-16] MEDS: PATIENT OWN MEDICATION PO SCH (10:28)
[2018-10-16] MEDS: Zestril 5 MG PO SCH (10:28)
[2018-10-16] MEDS: solu-MEDROL 125 MG IV SCH (10:29)
[2018-10-16] MEDS: ROCEPHIN 2 Gm-D5w 50ML BAG** 2 G/50 ML IVPB IV SCH (10:29)
[2018-10-16] MEDS: ENOXAPARIN SODIUM SQ SCH (10:29)
[2018-10-16] MEDS: Zithromax 500 MG/ 250 ML NaCl Premix 500 MG/250 ML IVPB IV SCH (10:29)
[2018-10-16 11:09] VITALS: BP 188/79
--- NOTE | 2018-10-16 12:39 | PCM.DS ---
Discharge Summary Date of Admission: 10/12/18 09:11 Admitting Physician: COLE FRANCO Primary Care Provider: COLE FRANCO Allergies Allergies No Known Drug Allergies Allergy (Verified 06/24/18 19:17) Hospital Summary - Hospital Course Hospital Course: Chief Complaint Diagnosis COPD Exacerbation Allergies Allergy/AdvReac Type Severity Reaction Status Date / Time No Known Drug Allergies Allergy Verified 06/24/18 19:17 Vital Signs (Last 24 hours) Temp Pulse Resp BP Pulse Ox 10/16/18 11:47 20 10/16/18 11:08 97.7 F 70 20 188/79 97 10/16/18 08:00 22 10/16/18 07:10 97.6 F 80 22 187/74 94 L 10/16/18 06:50 80 22 94 L 10/16/18 04:00 97.5 F 85 26 H 172/78 96 10/16/18 01:10 70 18 93 L 10/16/18 00:00 97.6 F 84 20 136/63 92 L 10/15/18 20:39 73 20 93 L 10/15/18 20:00 97.5 F 84 20 178/79 95 10/15/18 16:00 98.5 F 70 18 150/65 97 10/15/18 13:17 96 Home Medications Medication Instructions Recorded Confirmed Last Taken Type Albuterol 2.5 mg/3 ml Neb 3 ml IH Q6H 10/11/18 10/11/18 Unknown History [Proventil 2.5 mg/3 ml Neb] Albuterol Sulfate [Ventolin Hfa] 2 puff IH QID PRN PRN 10/11/18 10/11/18 Unknown History Budesonide/Formoterol Fumarate 2 puff IH BID 10/11/18 10/11/18 Unknown History [Symbicort 160-4.5 Mcg Inhaler] Multivit-Minerals/FA/Lycopene [One 1 tab PO DAILY 10/11/18 10/11/18 10/11/18 History Daily For Men Tablet] Current Medications Generic Name Dose Route Start Last Admin Trade Name Freq PRN Reason Stop Dose Admin Acetaminophen 325 mg 10/11/18 12:55 Tylenol 325 Mg PO 11/10/18 12:54 Q4H PRN PRN PAIN, FEVER, HEADACHE Albuterol Sulfate 2 puff 10/11/18 15:01 Proventil Common Canister IH 11/10/18 15:00 QID PRN PRN SHORTNESS OF BREATH/WHEEZING Albuterol/Ipratropium 3 ml 10/11/18 13:00 10/16/18 12:35 Duoneb 0.5-3 Mg/3 Ml Neb IH 11/10/18 12:59 3 ml Q6HRT [facility] Administration Benzonatate 100 mg 10/11/18 15:00 10/16/18 10:28 Tessalon Perles 100 Mg PO 11/10/18 14:59 100 mg TID [facility] Administration Bismuth Subsalicylate 524 mg 10/12/18 06:45 10/16/18 04:20 Pepto-Bismol PO 11/10/18 18:29 524 mg Q1H PRN PRN Administration Enoxaparin Sodium 40 mg 10/15/18 10:00 10/16/18 10:29 Enoxaparin Sodium SQ 11/14/18 09:59 40 mg DAILY [facility] Administration Ceftriaxone Sodium/Dextrose 2 g in 50 mls @ 100 mls/hr 10/11/18 13:15 10:29 Rocephin 2 Gm-D5w 50ml Bag IV 11/10/18 13:14 100 mls/hr Q24H10 [facility] Administration Sodium Chloride 1,000 mls @ 30 mls/hr 10/11/18 13:00 10/16/18 06:52 Sodium Chloride 0.9% 1000 Ml IV 11/10/18 12:59 50 mls/hr .Q24H [facility] Administration Azithromycin 500 mg in 250 mls @ 250 mls/hr 10/12/18 10:00 10/16/18 10:29 Zithromax 500 Mg/ 250 Ml Nacl Premix IV 11/11/18 09:59 250 mls/hr Q24H10 [facility] Administration Lisinopril 5 mg 10/15/18 10:00 10/16/18 10:28 Zestril 5 Mg PO 11/14/18 09:59 5 mg DAILY [facility] Administration Methylprednisolone Sodium Succinate 60 mg 10/12/18 10:00 10/16/18 10:29 Solu-Medrol 125 Mg IV 11/11/18 09:59 60 mg Q12HT [facility] Administration Multivitamins Therapeutic 1 tab 10/12/18 10:00 10/16/18 10:28 Theragran Multivitamin PO 11/11/18 09:59 1 tab DAILY [facility] Administration Pantoprazole Sodium 40 mg 10/13/18 13:45 10/16/18 10:28 Protonix 40 Mg Iv IV 11/12/18 13:44 40 mg Q24H10 [facility] Administration Bisoprolol/Hctz 5-6. 1 each 10/13/18 10:00 10/16/18 10:28 25mg Tablet PO 11/12/18 09:59 1 each DAILY [facility] Administration Fluticasone/Salmeterol 2 puff 10/11/18 19:00 10/16/18 06:40 Advair Hfa 230/21 Mcg Common Canister* IH 11/10/18 18:59 2 puff BIDRT [facility] Administration Discontinued Medications Generic Name Dose Route Start Last Admin Trade Name Freq PRN Reason Stop Dose Admin Albuterol Sulfate Confirm 10/11/18 12:04 Proventil 2.5 Mg/3 Ml Neb Administered 10/11/18 12:05 Dose 2.5 mg IH .STK-MED ONE Albuterol Sulfate 2.5 mg 10/11/18 15:00 10/11/18 12:05 Proventil 2.5 Mg/3 Ml Neb IH 11/10/18 14:59 2.5 mg Q4HRT [facility] Administration Bismuth Subsalicylate 525 mg 10/11/18 18:30 10/11/18 19:49 Pepto-Bismol PO 11/10/18 18:29 525 mg Q1-2H [facility] Administration Azithromycin 500 mg in 250 mls @ 250 mls/hr 10/11/18 14:00 Zithromax 500 Mg/ 250 Ml Nacl Premix IV 11/10/18 13:59 Q24H10 [facility] Lisinopril 5 mg 10/14/18 11:40 10/14/18 12:32 Zestril 5 Mg PO 10/14/18 11:41 5 mg STAT STA Administration Miscellaneous Information 1 each 10/11/18 15:15 Medication Intervention PO 11/10/18 15:14 .RN TO CHECK ON [facility] Fluticasone/Salmeterol 2 puff 10/11/18 19:00 Advair Hfa 115/21 Common Canister* IH 11/10/18 18:59 BIDRT [facility] Intake & Output (Last 24 hours) 10/14/18 10/15/18 10/16/18 10/17/18 11:59 11:59 11:59 11:59 Intake Total 2800 2060 4951 Output Total 900 Balance 2800 2060 4051 Patient Care Notes (Last 24 hours) 10/16/18 07:58 Respiratory Note by Shanita Morel PT'S O2 SAT ON ROOM AIR WHILE AT REST WAS 92%. PT'S O2 SAT ON ROOM AIR WHILE WALKING WAS 84%. PT WAS THEN PLACED ON 2LPM NASAL CANNULA WHILE WALKING. O2 SAT INCREASED TO 88%. OXYGEN WAS THEN INCREASED TO 3LPM WHILE WALKING. O2 SAT INCREASED TO 91%. NURSE NOTIFIED. Initialized on 10/16/18 07:58 - END OF NOTE - Vitals & Intake/Output Vital Signs: Vital Signs Temperature 97.7 F 10/16/18 11:08 Pulse Rate 70 10/16/18 11:08 Respiratory Rate 20 10/16/18 11:47 Blood Pressure 188/79 10/16/18 11:08 O2 Sat by Pulse Oximetry 97 10/16/18 11:08 Oxygen-Last Documented O2 Percentage 2 Liters = 28% Intake & Output: Intake & Output 10/14/18 10/15/18 10/16/18 10/17/18 11:59 11:59 11:59 11:59 Intake Total 2800 2060 4951 Output Total 900 Balance 2800 2060 4051 - Lab Result Diagrams: 10/14/18 12:25 10/14/18 12:25 - Procedures and Test Procedures and Tests throughout Hospitalization: Therapy Orders & Screens 10/11/18 12:27 Oxygen NASAL CANNULA 2 lpm Comment: Respiratory Therapy Assessment DAILY Comment: 10/11/18 12:28 Peak Expiratory Flow Rate ONCE Comment: Reason For Exam: 10/11/18 12:55 EKG STAT Comment: Diagnosis: COPD Exacerbation Oxygen Nasal Cannula 2 lpm Comment: Diagnosis: COPD Exacerbation Respiratory Therapy Consult ROUTINE Comment: Reason For Exam: Diagnosis: COPD Exacerbation 10/11/18 21:00 BiPap/CPAP ROUTINE Comment: CPAP PER HOME SETTINGS (AUTOPAP [id number]) Diagnosis: COPD Exacerbation 10/13/18 13:35 Qualify for Home Oxygen ROUTINE Comment: QUALIFY FOR HOME O2 PRIOR TO DC HOME, BLACK LUNG Diagnosis: COPD Exacerbation Discharge Exam General Appearance: no apparent distress, alert Neurologic Exam: alert, oriented x 3, cooperative, normal mood/affect, nml cerebellar function, sensation nml, No motor deficits Skin Exam: normal color, warm, dry Eye Exam: PERRL, EOMI, eyes nml inspection Ears, Nose, Throat Exam: normal ENT inspection, pharynx normal, moist mucous membranes Neck Exam: normal inspection, non-tender, supple, full range of motion Respiratory Exam: normal breath sounds, lungs clear, No respiratory distress Cardiovascular Exam: regular rate/rhythm, normal heart sounds Gastrointestinal/Abdomen Exam: soft, No tenderness, No mass Extremity Exam: normal inspection, normal range of motion Back Exam: normal inspection, normal range of motion, No CVA tenderness, No vertebral tenderness Male Genitalia Exam: deferred Rectal Exam: deferred Final Diagnosis/Problem List - Final Discharge Diagnosis/Problem (1) COPD exacerbation Current Visit: Yes Status: Acute Assessment & Plan: resolved. He requires 2 liters of oxygen thru nasal cannula Code(s): J44.1 - CHRONIC OBSTRUCTIVE PULMONARY DISEASE W (ACUTE) EXACERBATION (2) HTN (hypertension) Current Visit: Yes Status: Chronic Code(s): I10 - ESSENTIAL (PRIMARY) HYPERTENSION - Discharge Discharge Date: 10/16/18 Disposition: Home, Self-Care Condition: Stable Prescriptions: New Methylprednisolone Packet [Medrol Dosepack] 4 mg PO UD #30 packet Continue Bisoprolol/Hydrochlorothiazide [Bisoprolol-Hctz 5-6.25 mg Tab] 1 each PO DAILY Benzonatate [Tessalon Perle] 100 mg PO TID Albuterol Sulfate [Ventolin Hfa] 2 puff IH QID PRN PRN PRN Reason: Shortness Of Breath/Wheezing Budesonide/Formoterol Fumarate [Symbicort 160-4.5 Mcg Inhaler] 2 puff IH BID Albuterol 2.5 mg/3 ml Neb [Proventil 2.5 mg/3 ml Neb] 3 ml IH Q6H Multivit-Minerals/FA/Lycopene [One Daily For Men Tablet] 1 tab PO DAILY Instructions: Exacerbation of COPD Follow up with: COLE FRANCO MD [Primary Care Provider] - 1 Week Forms: Discharge Instructions
[2018-10-16 12:43] VITALS: PULSE 74; O2SAT 93
== END 2018-10-16 14:25 | disposition home or self-care (01) | DRG 191 ==
LOC: MED SURG 09:11 → OBSVTOIN 10-12 09:11 → MED SURG 10-16 11:11
PROVIDERS: ADMIT General Practice; ATTEND General Practice
DX: J44.1 Chronic obstructive pulmonary disease with (acute) exacerbation (principal); E87.1 Hypo-osmolality and hyponatremia; I10 Essential (primary) hypertension; D69.6 Thrombocytopenia, unspecified; Z79.899 Other long term (current) drug therapy
CPT/HCPCS: 36415; 71046; 80053; 83880; 85025; 93005; 94003; 94150; 94640; 94660; 94760; G0378; J0456; J0696; J1650; J2930; J7609; A9270-GY

== ENCOUNTER 2019-01-13 19:40 | Emergency (ER) | payer MEDICARE, OTHER ==
[2019-01-13] MEDS ORDERED: SUBLIMAZE 100 MCG/2 ML IV ONE (20:03)
[2019-01-13] MEDS ORDERED: Zofran 4 MG/2 ML VIAL IV ONE (20:03)
[2019-01-13] MEDS ORDERED: Sodium Chloride 0.9% 1000 ML 1,000 ML IV SCH (20:15)
--- NOTE | 2019-01-13 20:18 | ERPHSYRPT ---
- History of Present Illness Time Seen by Provider: 01/13/19 20:03 Historian: patient Exam Limitations: clinical condition Patient Subjective Stated Complaint: Pt states he has had RLQ abd pain x 2 days , "upset stomach", denies fever, vomiting, diarrhea. Reports he took "a shot of prune juice" to see if it helped but denies constipation and reports good bm today. Triage Nursing Assessment: [place]/warm/dry, resp easy, a&Ox4, wheeled to room but able to stand and transfer to bed per self. Pt is [place]. Hyperactive bowel sounds noted. tender on RLQ and RUQ on palpation. Physician History: PATIENT WITH A HISTORY OF HYPERTENSION AND COPD COMPLAINS OF RIGHT LOWER ABDOMINAL PAINS FOR 2 DAYS. DENIES FEVER, NAUSEA, EMESIS OR DIARRHEA. PAIN SCALE 4/10, ALSO DENIES URINARY SYMPTOMS. 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 Timing/Duration: yesterday Activities at Onset: none Abdominal Pain Onset Location: RLQ Pain Radiation: no radiation Severity of Pain-Max: moderate Severity of Pain-Current: moderate Modifying Factors: Improves With: nothing Associated Symptoms: denies symptoms Previous symptoms: no prior history Allergies/Adverse Reactions: No Known Drug Allergies Allergy (Verified 06/24/18 19:17) Home Medications: Benzonatate [Tessalon Perle] 100 mg PO TID 06/24/18 [History] Bisoprolol/Hydrochlorothiazide [Bisoprolol-Hctz 5-6.25 mg Tab] 1 each PO DAILY 06/24/18 [History] Albuterol 2.5 mg/3 ml Neb [Proventil 2.5 mg/3 ml Neb] 3 ml IH Q6H [History] Albuterol Sulfate [Ventolin Hfa] 2 puff IH QID PRN PRN 10/11/18 [History] Budesonide/Formoterol Fumarate [Symbicort 160-4.5 Mcg Inhaler] 2 puff IH BID 04/21 [History] Multivit-Minerals/FA/Lycopene [One Daily For Men Tablet] 1 tab PO DAILY [History] Hx Tetanus, Diphtheria Vaccination/Date Given: Yes Hx Influenza Vaccination/Date Given: Yes Hx Pneumococcal Vaccination/Date Given: Yes Immunizations Up to Date: Yes - Review of Systems Constitutional: No Fever, No Chills Eyes: No Symptoms Ears, Nose, & Throat: No Symptoms Respiratory: No Symptoms, No Cough, No Dyspnea Cardiac: No Symptoms, No Chest Pain, No Edema, No Syncope Abdominal/Gastrointestinal: Abdominal Pain, No Nausea, No Vomiting, No Diarrhea Genitourinary Symptoms: No Symptoms, No Dysuria Musculoskeletal: No Symptoms, No Back Pain, No Neck Pain Skin: No Symptoms, No Rash Neurological: No Dizziness, No Focal Weakness, No Sensory Changes Psychological: No Symptoms Endocrine: No Symptoms All Other Systems: Reviewed and Negative - Past Medical History Pertinent Past Medical History: Yes Neurological History: No Pertinent History ENT History: No Pertinent History Cardiac History: Hypertension Respiratory History: COPD Endocrine Medical History: No Pertinent History Musculoskeletal History: No Pertinent History GI Medical History: No Pertinent History History: No Pertinent History Psycho-Social History: No Pertinent History Male Reproductive Disorders: No Pertinent History - Past Surgical History Past Surgical History: Yes Neuro Surgical History: No Pertinent History Cardiac: No Pertinent History Respiratory: No Pertinent History Gastrointestinal: No Pertinent History Genitourinary: No Pertinent History Musculoskeletal: No Pertinent History Male Surgical History: No Pertinent History 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" - Social History Smoking Status: Former smoker Exposure to second hand smoke: No Drug Use: none Patient Lives Alone: No - Nursing Vital Signs Nursing Vital Signs: Initial Vital Signs Temperature 97.8 F 01/13/19 19:49 Pulse Rate 69 01/13/19 19:49 Respiratory Rate 18 01/13/19 19:49 Blood Pressure 185/67 01/13/19 19:49 Pain Scale Pain Intensity 0 - Physical Exam General Appearance: no apparent distress, alert Eye Exam: PERRL/EOMI, eyes nml inspection Ears, Nose, Throat Exam: normal ENT inspection, pharynx normal, moist mucous membranes Neck Exam: normal inspection, non-tender, supple, full range of motion Respiratory Exam: normal breath sounds, lungs clear, No respiratory distress Cardiovascular Exam: regular rate/rhythm, normal heart sounds Gastrointestinal/Abdomen Exam: soft, normal bowel sounds, No tenderness (RIGHT LOWER QUAD TENDERNESS, NO GUARDING), No mass Back Exam: normal inspection, normal range of motion, No CVA tenderness, No vertebral tenderness Extremity Exam: normal inspection, normal range of motion, pelvis stable Neurologic Exam: alert, oriented x 3, cooperative, normal mood/affect, nml cerebellar function, sensation nml, No motor deficits Skin Exam: normal color, warm, dry - CT Exams Abdomen/Pelvis CT Interpretation: Tele-radiologist Report (NORMAL GALLBLADDER AND BILE DUCTS, KIDNEY AND URETERS-NORMAL NO HYDRONEPHROSIS, NO EVIDENCE OF APPENDICITIS, 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 AND NO EVIDENCE OF ACUTE INTRA-ABDOMINAL OR PELVIS PATHOLOGY) Ordered Tests: Active Orders 24 hr Category Date Time Status IV Insertion STAT Care 01/13/19 20:03 Active ABDOMEN AND PELVIS W/0 CONTRAS [CT] Stat Exams 01/13/19 20:04 Taken AMYLASE Stat Lab 01/13/19 20:16 Completed BLOOD CULTURE Stat Lab 01/13/19 20:36 Received CBC W DIFF Stat Lab 01/13/19 20:16 Completed CMP Stat Lab 01/13/19 20:16 Completed LIPASE Stat Lab 01/13/19 20:16 Completed UA W/RFX UR CULTURE Stat Lab 01/13/19 20:17 Completed Medication Summary Generic Name Dose Route Start Last Admin Trade Name Freq PRN Reason Stop Dose Admin Sodium Chloride 1,000 mls @ 100 mls/hr 01/13/19 20:15 01/13/19 20:27 Sodium Chloride 0.9% 1000 Ml IV 02/12/19 20:14 100 mls/hr .Q10H [facility] Administration Discontinued Medications Generic Name Dose Route Start Last Admin Trade Name Freq PRN Reason Stop Dose Admin Fentanyl Citrate 50 mcg 01/13/19 20:03 01/13/19 20:27 Sublimaze 100 Mcg/2 Ml IV 01/13/19 20:04 50 mcg STAT ONE Administration Fentanyl Citrate Confirm 01/13/19 20:19 Sublimaze 100 Mcg/2 Ml Administered 01/13/19 20:20 Dose 100 mcg .ROUTE .STK-MED ONE Ondansetron HCl 4 mg 01/13/19 20:03 01/13/19 20:27 Zofran 4 Mg/2 Ml Vial IV 01/13/19 20:04 4 mg STAT ONE Administration Ondansetron HCl Confirm 01/13/19 20:19 Zofran 4 Mg/2 Ml Vial Administered 01/13/19 20:20 Dose 4 mg .ROUTE .STK-MED ONE Lab/Rad Data: Laboratory Result Diagrams 01/13/19 20:16 01/13/19 20:16 Laboratory Results 01/13/19 01/13/19 01/13/19 Range/Units 20:17 20:16 20:16 WBC 10.2 (4.0-10.5) K/mm3 RBC 4.64 (4.1-5.6) M/mm3 Hgb 13.0 (12.5-18.0) gm/dl Hct 39.1 L (42-50) % MCV 84.3 (78-100) fl MCH 28.0 (26-32) pg MCHC 33.2 (32-36) g/dl RDW 14.3 H (11.5-14.0) % Plt Count 168 (150-450) K/mm3 MPV 8.5 (6-9.5) fl Gran % 71.2 H (36.0-66.0) % Eos # (Auto) 0.37 (0-0.5) Absolute Lymphs (auto) 1.61 (1.0-4.6) Absolute Monos (auto) 0.90 (0.0-1.3) Lymphocytes % 15.8 L (24.0-44.0) % Monocytes % 8.8 (0.0-12.0) % Eosinophils % 3.6 (0.00-5.0) % Basophils % 0.6 (0.0-0.4) % Absolute Granulocytes 7.27 H (1.4-6.9) Basophils # 0.06 (0-0.4) Sodium 128 L (137-145) mmol/L Potassium 4.2 (3.5-5.1) mmol/L Chloride 95 L (98-107) mmol/L Carbon Dioxide 25 (22-30) mmol/L Anion Gap 12.6 (5-15) MEQ/L BUN 12 (9-20) mg/dL Creatinine 0.91 (0.66-1.25) mg/dL Estimated GFR > 60.0 ML/MIN Glucose 96 (74-106) mg/dL Calcium 9.6 (8.4-10.2) mg/dL Total Bilirubin 1.70 H (0.2-1.3) mg/dL AST 32 (17-59) U/L ALT 26 (0-50) U/L Alkaline Phosphatase 66 (38-126) U/L Serum Total Protein 7.3 (6.3-8.2) g/dL Albumin 4.2 (3.5-5.0) g/dL Amylase 62 (30-110) U/L Lipase 66 (23-300) U/L Urine Color YELLOW (YELLOW) Urine Appearance CLEAR (CLEAR) Urine pH 7.0 (5-6) Ur Specific [place] 1.009 (1.005-1.025) Urine Protein NEGATIVE (Negative) Urine Ketones NEGATIVE (NEGATIVE) Urine Blood NEGATIVE (0-5) Sergey/ul Urine Nitrite NEGATIVE (NEGATIVE) Urine Bilirubin NEGATIVE (NEGATIVE) Urine Urobilinogen NEGATIVE (0-1) mg/dL Ur Leukocyte Esterase NEGATIVE (NEGATIVE) Urine WBC (Auto) NONE SEEN (0-5) /HPF Urine RBC (Auto) NONE SEEN (0-2) /HPF U Epithel Cells (Auto) NONE (FEW) /HPF Urine Bacteria (Auto) NONE SEEN (NEGATIVE) /HPF Urine Culture Reflexed NO (NO) Urine Glucose NEGATIVE (NEGATIVE) mg/dL - Progress Progress Note: 01/13/19 22:23 IV NORMAL SALINE 50ML/HR, FENTANYL 50MCG IV, PAIN RESOLVED - Departure Departure Disposition: Home Clinical Impression: ABDOMINAL WALL STRAIN Condition: Stable Critical Care Time: No Referrals: COLE FRANCO MD [Primary Care Provider] - Additional Instructions: [place] 5/325 EVERY 6 HOURS FOR PAIN NEEDED. 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 RETURN TO EMERGENCY ROOM FOR INCREASING PAIN. Prescriptions: Hydrocodone/APAP 5-325 Tab^^^ [[place] 5-325 Tablet^^^] 1 tab PO Q6HPRN PRN #8 tablet MDD 6 PRN Reason: ABDOMINAL WALL STRAIN
[2019-01-13] MEDS ORDERED: Zofran 4 MG/2 ML VIAL ONE (20:19)
[2019-01-13] MEDS ORDERED: Sodium Chloride 0.9% 1000 ML 1,000 ML ONE (20:19)
[2019-01-13] MEDS ORDERED: SUBLIMAZE 100 MCG/2 ML ONE (20:19)
[2019-01-13 20:20] LABS: BASOPHIL % 0.6 % (0.0-0.4); Basophil (Absolute #) 0.06 (0-0.4); Eosinophil % 3.6 % (0.00-5.0); Eosinophil (Absolute #) 0.37 (0-0.5); Granulocyte Absolute (ANC) 7.27 (1.4-6.9); Granulocytes % 71.2 % (36.0-66.0); Hematocrit 39.1 % (42-50); Lymphocyte (Absolute #) 1.61 (1.0-4.6); Lymphocytes % 15.8 % (24.0-44.0); Mean Cell Volume 84.3 fl (78-100); Mean Corpuscular Hgb Concent. 33.2 g/dl (32-36); Mean Platelet Volume 8.5 fl (6-9.5); Monocytes % 8.8 % (0.0-12.0); Platelet Count 168 K/mm3 (150-450); Red Blood Count 4.64 M/mm3 (4.1-5.6); Red Cell Distribution Width 14.3 % (11.5-14.0); White Blood Count 10.2 K/mm3 (4.0-10.5)
[2019-01-13 20:24] LABS: Appearance CLEAR (CLEAR); Bilirubin NEGATIVE (NEGATIVE); Blood NEGATIVE Ery/ul (0-5); Glucose NEGATIVE (NEGATIVE); Ketones NEGATIVE (NEGATIVE); Leukocyte Esterase NEGATIVE (NEGATIVE); Nitrite NEGATIVE (NEGATIVE); Protein,Urine Dip NEGATIVE (Negative); Specific Gravity 1.009 (1.005-1.025); Urobilinogen NEGATIVE mg/dL (0-1)
[2019-01-13 20:31] LABS: ALBUMIN 4.2 g/dL (3.5-5.0); ALKALINE PHOSPHATASE 66 U/L (38-126); AMYLASE 62 U/L (30-110); ANION GAP 12.6 MEQ/L (5-15); BLOOD UREA NITROGEN 12 mg/dL (9-20); CHLORIDE 95 mmol/L (98-107); Calcium 9.6 mg/dL (8.4-10.2); Carbon Dioxide 25 mmol/L (22-30); Creatinine 1 0.91 mg/dL (0.66-1.25); Glucose 96 mg/dL (74-106); Potassium 4.2 mmol/L (3.5-5.1); SGOT/AST 32 U/L (17-59); SGPT/ALT 26 U/L (0-50); SODIUM 128 mmol/L (137-145); Total Protein 7.3 g/dL (6.3-8.2)
[2019-01-13 20:36] LABS: Bacteria NONE SEEN /HPF (NEGATIVE); RBC NONE SEEN /HPF (0-2); WBC NONE SEEN /HPF (0-5)
[2019-01-13 21:45] VITALS: BP 174/82; PULSE 66; O2SAT 92
[2019-01-13] MEDS ORDERED: NORCO 5/325 MG PO ONE (22:31)
[2019-01-13] MEDS ORDERED: NORCO 5/325 MG ONE (22:32)
--- NOTE | 2019-01-14 08:10 | XRAY ---
Indication: Right lower quadrant pain. Multiple contiguous axial images obtained through the abdomen and pelvis without contrast. Comparison: None Lung bases demonstrates scattered pleural plaquing bilaterally and tiny right lower lobe calcified granuloma. No infiltrate or effusion. Heart is not enlarged. Noncontrasted stomach and bowel loops appear nonobstructed. Appendix emanates inferiorly from the cecum and measures 7-8 mm in diameter. Minimal stranding concerning for mild/early appendicitis. Also 7 x 12 mm hyperdensity at origin of appendix, probable fecalith. No large free fluid/air. Liver demonstrates at least 2 hepatic cysts, largest 1.9 cm in the left lobe. Spleen enlarged measuring 14 cm in greatest axial dimension with a few tiny calcified granulomas. Enlarged prostate gland impresses on the base of the bladder. Remaining liver, gallbladder, pancreas, spleen, adrenal glands, kidneys, ureters, and bladder appear unremarkable for noncontrast exam. 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 Osseous structures intact with osteopenia, minimal scoliosis, and moderate multilevel degenerative spondylosis. Incompletely visualized right scrotal hydrocele. Impression: 1. Abnormal appendix as detailed concerning for mild/early appendicitis. Fecalith at origin of appendix. 2. 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 3. Incompletely visualized right scrotal hydrocele. Testicular sonogram may yield further information difficulty warranted. 4. Incidental findings including bilateral calcified pleural plaquing, hepatic cysts, splenomegaly, evidence for old granulomatous disease, enlarged prostate gland, osteopenia, multilevel degenerative spondylosis, and scoliosis. Comment: Preliminary interpretation was made by [facility] who does not report appendicitis. Incidental findings including hepatic cysts, scrotal hydrocele, and splenomegaly also not reported. Telephone report given to Dr. Rubio in the ER at 0757 hours on January 14, 2019. CTDI 61.99
== END 2019-01-13 22:40 | disposition home or self-care (01) ==
LOC: ED 19:40
DX: S39.011A Strain of muscle, fascia and tendon of abdomen, initial encounter (principal); R10.31 Right lower quadrant pain; I10 Essential (primary) hypertension; J44.9 Chronic obstructive pulmonary disease, unspecified; X50.0XXA Overexertion from strenuous movement or load, initial encounter; Y93.89 Activity, other specified; Y92.89 Other specified places as the place of occurrence of the external cause; Z79.899 Other long term (current) drug therapy
CPT/HCPCS: 36000; 36415; 74176; 80053; 81001; 82150; 83690; 85025; 87040; 96360; 96361; 96374; 96375; 99284; J2405; J3010; A9270-GY

== ENCOUNTER 2020-12-01 08:44 | Emergency (ER) | payer MEDICARE, OTHER ==
[2020-12-01] MEDS ORDERED: Adacel Vial IM ONE ×2 (08:54→09:04)
--- NOTE | 2020-12-01 08:57 | ERPHSYRPT ---
- History of Present Illness Time Seen by Provider: 12/01/20 08:49 Source: patient Exam Limitations: no limitations Physician History: 80 years old male [id number] presented in the ER with chief complaint of hot grease burn 3 days ago right index and middle finger. There was blisters initially which broke and now have raw tissue which is scabbing. Causing dull aching to sharp moderate intensity pain with movements, catching and better with being still or applying ice. Minimal redness around the alex. No restricted range of motion of finger joints. Unsure about tetanus status. Timing/Duration: day(s) (3), sudden, worse Severity: moderate Modifying Factors: Improves With: immobilization. Worsens With: movement Associated Symptoms: denies symptoms Allergies/Adverse Reactions: No Known Drug Allergies Allergy (Verified 12/01/20 08:49) Hx Tetanus, Diphtheria Vaccination/Date Given: Yes Hx Influenza Vaccination/Date Given: Yes Hx Pneumococcal Vaccination/Date Given: Yes - Review of Systems Constitutional: No Symptoms Ears, Nose, & Throat: No Symptoms Cardiac: No Symptoms Abdominal/Gastrointestinal: No Symptoms Genitourinary Symptoms: No Symptoms Musculoskeletal: No Symptoms Skin: Rash, Skin Lesions Neurological: No Symptoms Psychological: No Symptoms Endocrine: No Symptoms - Past Medical History Pertinent Past Medical History: Yes Neurological History: No Pertinent History ENT History: No Pertinent History Cardiac History: Hypertension Respiratory History: COPD Endocrine Medical History: No Pertinent History Musculoskeletal History: No Pertinent History GI Medical History: No Pertinent History History: No Pertinent History Psycho-Social History: No Pertinent History Male Reproductive Disorders: No Pertinent History - Past Surgical History Past Surgical History: Yes Neuro Surgical History: No Pertinent History Cardiac: No Pertinent History Respiratory: No Pertinent History Gastrointestinal: No Pertinent History Genitourinary: No Pertinent History Musculoskeletal: No Pertinent History Male Surgical History: No Pertinent History 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 Minimal tenderness. Also 1.2 cm area of second-degree partial-thickness burn fourth middle phalanx lateral aspect with minimal sloughing. Distal neurovascular well intact.) Neurologic Exam: alert, oriented x 3, cooperative, mail censor II-XII nml as tested, normal mood/affect Skin Exam: normal color O2 Delivery: Room Air Ordered Tests: Medication Summary Generic Name Dose Route Start Last Admin Trade Name Freq PRN Reason Stop Dose Admin Bacitracin Zinc 1 gm 12/01/20 10:00 Baciguent 30 Gm TP 12/31/20 09:59 BID ZANE Discontinued Medications Generic Name Dose Route Start Last Admin Trade Name Freq PRN Reason Stop Dose Admin Bacitracin Zinc Confirm 12/01/20 08:58 Baciguent Packet Administered 12/01/20 08:59 Dose 1 gm .ROUTE .STK-MED ONE Diphtheria/Tetanus/Acell Pertussis 0.5 ml 12/01/20 08:54 Adacel Vial IM 12/01/20 08:55 .ONCE ONE - Progress Progress Note: 12/01/20 08:55 2nd deg burn with minimal sloughing. Recommended applying bacitracin and keeping them clean. Discussed signs symptoms of infection needing return to ER which he seems understanding. Tetanus is updated. Counseled pt/family regarding: diagnosis, need for follow-up - Departure Departure Disposition: Home Clinical Impression: Burn of finger Qualifiers: Encounter type: initial encounter Laterality: right Burn degree: partial thickness (2nd degree) Qualified Code(s): T23.221A - Burn of second degree of single right finger (nail) except thumb, initial encounter Condition: Stable Critical Care Time: No Referrals: COLE FRANCO MD [Primary Care Provider] - Follow Up with PCP/3 days Instructions: Skin Alex Additional Instructions: Take Tylenol as needed for pain. Keep it clean. Follow-up with primary care physician for reevaluation. Apply bacitracin twice a day for next 5 to 7 days. Return to ER for increasing pain swelling redness discharge or difficulty movements fingers.
[2020-12-01] MEDS ORDERED: BACIGUENT PACKET ONE ×2 (08:58→09:03)
[2020-12-01 09:02] VITALS: BP 181/67; PULSE 70; O2SAT 95
[2020-12-01] MEDS ORDERED: BACIGUENT PACKET TP ONE (09:19)
[2020-12-01] MEDS ORDERED: BACIGUENT 30 GM TP SCH (10:00)
== END 2020-12-01 09:22 | disposition home or self-care (01) ==
LOC: ED 08:44
DX: T23.231A Burn of second degree of multiple right fingers (nail), not including thumb, initial encounter (principal); T79.9XXA Unspecified early complication of trauma, initial encounter; X10.2XXA Contact with fats and cooking oils, initial encounter; Y92.9 Unspecified place or not applicable
CPT/HCPCS: 90471; 90715; 99283; A9270-GY

== ENCOUNTER 2022-11-05 14:00 | Emergency (ER) | payer MEDICARE, OTHER ==
[2022-11-05 15:26] LABS: Absolute Neutrophil Ct (ANC) 5.98 x10^3/uL (1.4-6.9); BASOPHIL % 1.4 % (0.0-0.4); Basophil (Absolute #) 0.13 x10^3/uL (0-0.4); Eosinophil % 8.3 % (0.00-5.0); Eosinophil (Absolute #) 0.79 x10^3/uL (0-0.5); Hematocrit 36.7 % (42-50); Hemoglobin 12.1 g/dL (12.5-18.0); IMMATURE GRAN # 0.04 x10^3u/L (0.00-0.03); IMMATURE GRAN % 0.4 % (0.00-0.4); Lymphocytes % 17.8 % (24.0-44.0); Mean Cell Volume 81.2 fL (78-100); Mean Corpuscular Hemoglobin 26.8 pg (26-32); Mean Platelet Volume 8.1 fL (7.5-11.0); Monocyte (Absolute #) 0.91 x10^3/uL (0.0-1.3); Monocytes % 9.5 % (0.0-12.0); Neutrophil % 62.6 % (36.0-66.0); Platelet Count 206 x10^3/uL (150-450); Red Blood Count 4.52 x10^6/uL (4.1-5.6); Red Cell Distribution Width 14.4 % (11.5-14.0); White Blood Count 9.6 x10^3/uL (4.0-10.5)
[2022-11-05 15:35] LABS: ANION GAP 13.7 MEQ/L (5-15); BLOOD UREA NITROGEN 5 mg/dL (9-20); CHLORIDE 91 mmol/L (98-107); Calcium 8.8 mg/dL (8.4-10.2); Carbon Dioxide 26 mmol/L (22-30); Creatinine 1 0.62 mg/dL (0.66-1.25); EST GLOMERULAR FILTRATION RATE > 60.0 ML/MIN; Glucose 96 mg/dL (74-106); Potassium 4.3 mmol/L (3.5-5.1); SODIUM 126 mmol/L (137-145)
--- NOTE | 2022-11-05 15:40 | ERPHSYRPT ---
- History of Present Illness Time Seen by Provider: 11/05/22 14:48 Source: patient Exam Limitations: no limitations Patient Subjective Stated Complaint: Pt states "I have not had a bowel movement in about 5 days. I have trouble with my bowels but nothing is helping. I have called Dr. Franco but he is out of town and his nurse said to come here." Triage Nursing Assessment: PT presented alert and oriented X 3, skin wpd. pt ambulates with a slow gait. PT abdomen soft, non tender, pt stated pain of a 2. Physician History: Patient is here with constipation. Patient states that he has not pooped in 5 days. Called his PCP. Sent in here. No abdominal pain. No fever no chills. Patient is still passing gas. No falls or other trauma. No shortness of breath or chest pain. He has no nausea or vomiting. No other systemic signs of illness. No fevers. Allergies/Adverse Reactions: No Known Drug Allergies Allergy (Verified 12/01/20 08:49) Home Medications: Benzonatate 100 mg PO DAILY 11/05/22 [History] Bisoprolol/Hydrochlorothiazide [Bisoprolol-Hctz 5-6.25 mg Tab] 1 each PO DAILY 11/05/22 [History] Lactulose [Constulose] 10 gm PO DAILY PRN 11/05/22 [History] Hx Tetanus, Diphtheria Vaccination/Date Given: Yes Hx Influenza Vaccination/Date Given: Yes Hx Pneumococcal Vaccination/Date Given: Yes Immunizations Up to Date: Yes Travel Risk - International Travel Have you traveled outside of the country in past 3 weeks: No - Coronavirus Screening Are you exhibiting any of the following symptoms?: No Close contact with a COVID-19 positive Pt in past 14-21 Days: No - Vaccine Status Have you recieved a Covid-19 vaccination: Yes [employer]: Moderna - Vaccination Dates Date of 2cond Vaccination (if applicable): 2020 - Review of Systems Constitutional: No Fever, No Chills Eyes: No Symptoms Ears, Nose, & Throat: No Symptoms Respiratory: No Cough, No Dyspnea Cardiac: No Chest Pain, No Edema, No Syncope Abdominal/Gastrointestinal: Abdominal Pain, No Nausea, No Vomiting, No Diarrhea Genitourinary Symptoms: No Dysuria Musculoskeletal: No Back Pain, No Neck Pain Skin: No Rash Neurological: No Dizziness, No Focal Weakness, No Sensory Changes Psychological: No Symptoms Endocrine: No Symptoms All Other Systems: Reviewed and Negative - Past Medical History Pertinent Past Medical History: Yes Neurological History: No Pertinent History ENT History: No Pertinent History Cardiac History: Hypertension Respiratory History: COPD Endocrine Medical History: No Pertinent History Musculoskeletal History: No Pertinent History GI Medical History: No Pertinent History History: No Pertinent History Psycho-Social History: No Pertinent History Male Reproductive Disorders: No Pertinent History - Past Surgical History Past Surgical History: Yes Neuro Surgical History: No Pertinent History Cardiac: No Pertinent History Respiratory: No Pertinent History Gastrointestinal: No Pertinent History Genitourinary: No Pertinent History Musculoskeletal: No Pertinent History Male Surgical History: No Pertinent History 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" - Social History Smoking Status: Former smoker Exposure to second hand smoke: No Drug Use: none Patient Lives Alone: No - Nursing Vital Signs Nursing Vital Signs: Initial Vital Signs Temperature 97.6 F 11/05/22 14:44 Pulse Rate 62 11/05/22 14:44 Respiratory Rate 22 11/05/22 14:44 Blood Pressure 198/88 11/05/22 14:44 O2 Sat by Pulse Oximetry 95 11/05/22 14:44 Pain Scale Pain Intensity 0 - Physical Exam General Appearance: no apparent distress, alert Eye Exam: PERRL/EOMI, eyes nml inspection Ears, Nose, Throat Exam: normal ENT inspection, pharynx normal, moist mucous membranes Neck Exam: normal inspection, non-tender, supple, full range of motion Respiratory Exam: normal breath sounds, lungs clear, No respiratory distress Cardiovascular Exam: regular rate/rhythm, normal heart sounds, normal peripheral pulses Gastrointestinal/Abdomen Exam: soft, normal bowel sounds, other (No abdominal tenderness, rebound, guarding.), No tenderness, No mass Back Exam: normal inspection, normal range of motion, No CVA tenderness, No vertebral tenderness Extremity Exam: normal inspection, normal range of motion, pelvis stable Neurologic Exam: alert, oriented x 3, cooperative, normal mood/affect, nml cerebellar function, nml station & gait, sensation nml, No motor deficits Skin Exam: normal color, warm, dry, No rash Lymphatic Exam: No adenopathy SpO2: 95 - Course Nursing assessment & vital signs reviewed: Yes Ordered Tests: Active Orders 24 hr Category Date Time Status ABDOMEN AND PELVIS W/0 CONTRAS [CT] Stat Exams 11/05/22 15:06 Completed BMP Stat Lab 11/05/22 15:15 Completed CBC W DIFF Stat Lab 11/05/22 15:15 Completed Lab/Rad Data: Laboratory Result Diagrams 11/05/22 15:15 11/05/22 15:15 Laboratory Results 11/05/22 11/05/22 Range/Units 15:15 15:15 WBC 9.6 (4.0-10.5) x10^3/uL RBC 4.52 (4.1-5.6) x10^6/uL Hgb 12.1 L (12.5-18.0) g/dL Hct 36.7 L (42-50) % MCV 81.2 (78-100) fL MCH 26.8 (26-32) pg MCHC 33.0 (32-36) g/dL RDW 14.4 H (11.5-14.0) % Plt Count 206 (150-450) x10^3/uL MPV 8.1 (7.5-11.0) fL Gran % 62.6 (36.0-66.0) % Immature Gran % (Auto) 0.4 (0.00-0.4) % Nucleat RBC Rel Count 0.0 (0.00-0.1) % Eos # (Auto) 0.79 H (0-0.5) x10^3/uL Immature Gran # (Auto) 0.04 H (0.00-0.03) x10^3u/L Absolute Lymphs (auto) 1.70 (1.0-4.6) x10^3/uL Absolute Monos (auto) 0.91 (0.0-1.3) x10^3/uL Absolute Nucleated RBC 0.00 (0.00-0.01) x10^3u/L Lymphocytes % 17.8 L (24.0-44.0) % Monocytes % 9.5 (0.0-12.0) % Eosinophils % 8.3 H (0.00-5.0) % Basophils % 1.4 (0.0-0.4) % Absolute Granulocytes 5.98 (1.4-6.9) x10^3/uL Basophils # 0.13 (0-0.4) x10^3/uL Sodium 126 L (137-145) mmol/L Potassium 4.3 (3.5-5.1) mmol/L Chloride 91 L (98-107) mmol/L Carbon Dioxide 26 (22-30) mmol/L Anion Gap 13.7 (5-15) MEQ/L BUN 5 L (9-20) mg/dL Creatinine 0.62 L (0.66-1.25) mg/dL Estimated GFR > 60.0 ML/MIN Glucose 96 (74-106) mg/dL Calcium 8.8 (8.4-10.2) mg/dL - Progress Progress: improved Progress Note: 11/05/22 15:40 differential diagnosis includes kidney stone, compression fracture, infection, UTI, triple AAA - basic labs including: CBC, lipase, CMP - consider imaging: CT ab/pelvis 11/05/22 20:22 Patient does have a low sodium. Reviewing old notes, patient does have a history of hyponatremia. I did discuss this with the and the . They state their understanding for need for close follow-up of this. I do not feel that this is affecting his bowels today. Patient will increase salt intake over the next few days, repeat labs in 2 to 3 days with PCP. May return here sooner for any new or changing symptoms. CT scan was obtained. This showed no obvious sinister pathology. Patient declined IV contrast. Therefore we may not have seen everything on CT noncontrast. But I did explain this to the patient. He will need close follow- up with his PCP, abdominal reexam in 24 to 40 hours. May return here sooner for new or changing symptoms. Patient states his understanding and will follow-up. Counseled pt/family regarding: lab results, diagnosis, need for follow-up, rad results - Departure Departure Disposition: Home Clinical Impression: Constipation, Hyponatremia Condition: Stable Critical Care Time: No Referrals: COLE FRANCO MD [Primary Care Provider] - Follow up/PCP as directed Instructions: Constipation, Adult (DC) Additional Instructions: You have a low sodium today. You have had low sodiums in the past. Call your PCP on Tuesday to get the sodium rechecked. Should you feel worse at all this week and you may return for new or changing symptoms.
--- NOTE | 2022-11-05 17:51 | XRAY ---
Indication: Abdomen pain. Multiple contiguous axial images obtained through the abdomen and pelvis without contrast. Comparison: January 13, 2019 Lung bases again demonstrates diffuse bilateral calcified pleural plaquing and a few tiny right lower lobe calcified granulomas. Heart is not enlarged. Noncontrasted stomach and bowel loops nonobstructed with normal appendix. There is now mild diffuse colonic fecal debris throughout. No free fluid/air. Stable 5 mm and 1.9 cm hepatic cysts. Urinary bladder mildly distended with enlarged prostate gland. No free fluid/air. Remaining liver, gallbladder, pancreas, spleen, adrenal glands, kidneys, ureters, and bladder are unremarkable for noncontrast exam. Again moderate aortoiliac calcifications with stable 3.5 cm infrarenal AAA. Osseous structures intact again with osteopenia, mild/moderate degenerative changes throughout spine, and mild levoscoliosis. Impression: 1. New mild diffuse fecal stasis. 2. Again chronic findings including bilateral calcified pleural plaquing, hepatic cysts, enlarged prostate gland, arteriosclerotic with stable AAA, chronic bony findings, and old granulomatous disease.
[2022-11-05 18:20] VITALS: BP 168/82; PULSE 62
[2022-11-05 20:24] VITALS: O2SAT 95
== END 2022-11-05 18:38 | disposition home or self-care (01) ==
LOC: ED 14:00
DX: K59.00 Constipation, unspecified (principal); E87.1 Hypo-osmolality and hyponatremia; I10 Essential (primary) hypertension; Z79.899 Other long term (current) drug therapy
CPT/HCPCS: 36415; 74176; 80048; 85025; 99283